=== PATIENT | male | born 1955 | race African-American/Black ===

== ENCOUNTER 2019-11-05 13:30 | Emergency (ER) | payer BC ==
[2019-11-05 14:21] VITALS: BP 130/55
[2019-11-05] MEDS ORDERED: NORMAL SALINE 1000 ML 1,000 ML IV ONE ×2 (14:57→18:15)
--- NOTE | 2019-11-05 14:59 | ER Document Report ---
ED Medical Screen (RME) - General Chief Complaint: Urinary Problem Stated Complaint: BLOOD IN URINE Time Seen by Provider: 11/05/19 14:47 Notes: Patient is a 64-year-old male presents emergency department with a chief complaint of blood in urine. Patient reports he was seen at [facility] for a follow-up appointment today and was sent here for possible urinary tract obstruction. Patient reports he is able to urinate and empty his bladder but does urinate very frequently. Patient reports he has continued to have small blood clots in his urine. Patient reports he was placed on antibiotic about 1 week ago in which she did complete. Patient denies fever. Patient reports chills and feeling cold. Patient reports a decreased appetite and decreased liquid intake. Patient reports he has a bad taste in his mouth every time he at tempts to eat which makes him not want to. Patient reports weakness. TRAVEL OUTSIDE OF THE [place] IN LAST 30 DAYS: No - Related Data Allergies/Adverse Reactions: No Known Allergies Allergy (Verified 11/05/19 14:47) Past Medical History - Social History Chew tobacco use (# tins/day): No Frequency of alcohol use: None Drug Abuse: None Physical Exam - Vital signs Vitals: Pulse Resp BP Pulse Ox 54 L 16 130/55 H 100 11/05/19 14:20 11/05/19 14:20 11/05/19 14:20 11/05/19 14:20 Course - Re-evaluation Re-evalutation: 11/05/19 14:58 Patient's not febrile, tachycardic or hypotensive. Will initiate blood work, IV fluids to start as well as a urinalysis. Will perform bladder scanner to see if patient is retaining urine. I have greeted and performed a rapid initial assessment of this patient. A comprehensive ED assessment and evaluation of the patient, analysis of test results and completion of the medical decision making process will be conducted by additional ED providers. - Vital Signs Vital signs: Temp Pulse Resp BP Pulse Ox 54 L 16 130/55 H 100 11/05/19 14:20 11/05/19 14:20 11/05/19 14:20 11/05/19 14:20
[2019-11-05 16:38] LABS: ABSOLUTE MONOCYTES (AUTO) 1.1 10^3/uL (0.1-1.4); MONOCYTES % (AUTO) 6.2 % (3-13); TOTAL CELLS COUNTED % (AUTO) 100 %
[2019-11-05 16:48] LABS: ABSOLUTE NEUT (AUTO) 14.4 10^3/uL (1.7-8.2); BASOPHILS % (AUTO) 0.2 % (0-2); EOSINOPHILS % (AUTO) 0.3 % (0-6); HEMATOCRIT 29.9 % (37.9-51.0); HEMOGLOBIN 10.1 g/dL (13.5-17.0); LYMPHOCYTES % (AUTO) 11.3 % (13-45); MEAN CORPUSCULAR HEMOGLOBIN 28.7 pg (27.0-33.4); MEAN CORPUSCULAR HGB CONC 33.6 g/dL (32.0-36.0); MEAN CORPUSCULAR VOLUME 85 fl (80-97); PLATELET COUNT 790 10^3/uL (150-450); RED BLOOD COUNT 3.51 10^6/uL (4.35-5.55); WHITE BLOOD COUNT 17.6 10^3/uL (4.0-10.5)
[2019-11-05 16:57] LABS: APPEARANCE,URINE CLOUDY; BILIRUBIN,URINE NEGATIVE (NEGATIVE); COLOR,URINE AMBER; GLUCOSE, URINE NEGATIVE (NEGATIVE); KETONES,URINE NEGATIVE (NEGATIVE); LEUKOCYTE ESTERASE,URINE MODERATE (NEGATIVE); NITRITE,URINE NEGATIVE (NEGATIVE); PROTEIN,URINE 100 mg/dL (NEGATIVE); URINE SPECIFIC GRAVITY 1.017; UROBILINOGEN,URINE NEGATIVE mg/dL (<2.0)
[2019-11-05 16:58] LABS: ALBUMIN 4.3 g/dL (3.5-5.0); ALKALINE PHOSPHATASE 109 U/L (38-126); ASPARTATE AMINO TRANSFERASE 20 U/L (17-59); BILIRUBIN,DIRECT 0.2 mg/dL (0.0-0.4); BILIRUBIN,TOTAL 0.4 mg/dL (0.2-1.3); CALCIUM 9.9 mg/dL (8.4-10.2); GLUCOSE 102 mg/dL (75-110); TOTAL PROTEIN 8.1 g/dL (6.3-8.2)
[2019-11-05 17:03] LABS: CARBON DIOXIDE 14 mmol/L (22-30); CHLORIDE 95 mmol/L (98-107)
[2019-11-05 17:11] LABS: BLOOD UREA NITROGEN 201 mg/dL (7-20)
[2019-11-05 17:18] LABS: ANION GAP 23 (5-19); POTASSIUM 7.5 mmol/L (3.6-5.0)
[2019-11-05] MEDS ORDERED: SODIUM POLYSTYRENE SULFONATE 15 GM/60 ML PO ONE (17:27)
[2019-11-05] MEDS ORDERED: SODIUM BICARBONATE 8.4% INJ 50 MEQ/50 ML DISP.SYRIN IV ONE (17:27)
[2019-11-05] MEDS ORDERED: CALCIUM GLUCONATE 1000 MG/10 ML INJ IV ONE (17:27)
[2019-11-05] MEDS ORDERED: INSULIN REG, HUMAN 100 UNIT/ML 3 ML VIAL (PYX) IV ONE (17:27)
[2019-11-05] MEDS ORDERED: DEXTROSE 50%-WATER 25 GM/50 ML DISP.SYRIN IV ONE (17:27)
[2019-11-05] MEDS ORDERED: ALBUTEROL SULFATE 0.083% NEB 2.5 MG/3 ML AMPUL NEB ONE (17:27)
[2019-11-05] MEDS ORDERED: CEFTRIAXONE 1 GM/D5W RTU 1 GM/50 ML RTUPB IV ONE (18:16)
--- NOTE | 2019-11-05 18:32 | ER Document Report ---
ED General - General Chief Complaint: Urinary Problem Stated Complaint: BLOOD IN URINE Time Seen by Provider: 11/05/19 14:47 Primary Care Provider: ANTONIO CHOUDHARY PA [Primary Care Provider] - Follow up as needed Mode of Arrival: Ambulatory Information source: Patient TRAVEL OUTSIDE OF THE [place] IN LAST 30 DAYS: No - HPI Onset: Other - over the last week or more Onset/Duration: Gradual Quality of pain: No pain Severity: Moderate Pain Level: Denies Associated symptoms: Body/muscle aches, Chills, Weakness, Other - decreased Urine Output Exacerbated by: Denies Relieved by: Denies Similar symptoms previously: Yes - 4 years ago patient had renal failure and a kidney stone Recently seen / treated by doctor: Yes - patient seen at urgent care last week and diagnosed with UTI - given Cipro Notes: 64 year old male with a history of a prior Staghorn Calculi with renal failure 4 years ago here for decreased urination, blood in his urine, and generalized weakness. The patient went to urgent care last week and was diagnosed with a UTI. The patient was treated with Ciprofloxain and Prednisone (patient can not tell me why he was prescribed this) and he has been taking these since Sunday. The patient feels like he is getting weaker and weaker and he has the chills now. Of note, the patient was seen 4 years ago for similar symptoms and he was found to be in renal failure and to have a staghorn calculi (he was transferred to [facility] for nephrology services). - Related Data Allergies/Adverse Reactions: No Known Allergies Allergy (Verified 11/05/19 14:47) Past Medical History - General Information source: Patient - Social History Smoking Status: Current Every Day Smoker Chew tobacco use (# tins/day): No Frequency of alcohol use: None Drug Abuse: None Family History: Reviewed & Not Pertinent Patient has suicidal ideation: No Patient has homicidal ideation: No - Past Medical History Cardiac Medical History: Reports: None Pulmonary Medical History: Reports: None EENT Medical History: Reports: None Neurological Medical History: Reports: None Endocrine Medical History: Reports: None Renal/ Medical History: Reports: Other - Prior right sided staghorn calculi Malignancy Medical History: Reports None GI Medical History: Reports: None Musculoskeletal Medical History: Reports None Skin Medical History: Reports None Psychiatric Medical History: Reports: None Review of Systems - Review of Systems Constitutional: Chills, Weakness EENT: No symptoms reported Cardiovascular: No symptoms reported Respiratory: No symptoms reported Gastrointestinal: No symptoms reported Genitourinary: Flank pain - bilateral, Hematuria Male Genitourinary: No symptoms reported Musculoskeletal: No symptoms reported Skin: No symptoms reported Hematologic/Lymphatic: No symptoms reported Neurological/Psychological: No symptoms reported -: Yes All other systems reviewed and negative Physical Exam - Vital signs Vitals: Pulse Resp BP Pulse Ox 54 L 16 130/55 H 100 11/05/19 14:20 11/05/19 14:20 11/05/19 14:20 11/05/19 14:20 - Notes Notes: GENERAL: Wrapped in blankets, mild shiver noted. Well-nourished, mild acute d istress. HEAD: Atraumatic, normocephalic. EYES: Pupils equal round and reactive to light, extraocular movements intact, sclera anicteric, conjunctiva are normal. ENT: Nares patent, oropharynx clear without exudates. Moist mucous membranes. NECK: Normal range of motion, supple without lymphadenopathy or JVD. LUNGS: Breath sounds clear to auscultation bilaterally and equal. No wheezes rales or rhonchi. HEART: Regular rate and rhythm without murmurs, rubs or gallops. ABDOMEN: Mild abdominal distension. Soft, nontender, normoactive bowel sounds. No guarding, no rebound. No masses appreciated. EXTREMITIES: Normal range of motion, no pitting or edema. No clubbing or cyanosis. NEUROLOGICAL: Cranial nerves II through XII grossly intact. Normal speech, normal gait. PSYCH: Normal mood, normal affect. SKIN: Warm, Dry, normal turgor, no rashes or lesions noted. Course - Re-evaluation Re-evalutation: 11/05/19 19:18 I arrived for my shift at 6pm. This patient had been MSEed before I saw the patient and labs had returned showing significant kidney failure, hyperkalemia, and a continued UTI. Patient already had hyperkalemia treatments ordered by the screening provider but none had been given before I came on shift. Patient immediately treated with Calcium Gluconate, Insulin, Dextrose, Sodium Bicarbonate, IV Fluids, and Rocephin. 11/05/19 20:20 The patient had 600cc of urine in the bladder which is concerning for an ob structive Uropathy. I instructed the nursing staff to place a 3 way Wade and irrigate until his urine is clear. After speaking with the Hospitalist and Cable Operator here at [place], since there are no dialysis beds available and since the patient may need a Urological intervention, I was instructed to transfer the patient. Since the patient was seen at [place] 4 years ago for the same issue I consulted their Hospitalist who admitted the patient. - Vital Signs Vital signs: Temp Pulse Resp BP Pulse Ox 54 L 16 130/55 H 100 11/05/19 14:20 11/05/19 14:20 11/05/19 14:20 11/05/19 14:20 - Laboratory Result Diagrams: 11/05/19 16:10 11/05/19 16:10 Laboratory results interpreted by me: 11/05/19 11/05/19 11/05/19 15:50 16:10 16:10 WBC 17.6 H RBC 3.51 L Hgb 10.1 L Hct 29.9 L RDW 16.0 H Plt Count 790 H Lymph % (Auto) 11.3 L Absolute Neuts (auto) 14.4 H Seg Neutrophils % 82.0 H Sodium 131.5 L Potassium 7.5 H* Chloride 95 L Carbon Dioxide 14 L Anion Gap 23 H BUN 201 H Creatinine 11.48 H Est GFR ( Amer) 5 L Est GFR (MDRD) Non-Af 5 L POC Glucose Urine Protein 100 H Urine Blood LARGE H Ur Leukocyte Esterase MODERATE H 11/05/19 19:12 WBC RBC Hgb Hct RDW Plt Count Lymph % (Auto) Absolute Neuts (auto) Seg Neutrophils % Sodium Potassium Chloride Carbon Dioxide Anion Gap BUN Creatinine Est GFR ( Amer) Est GFR (MDRD) Non-Af POC Glucose 113 H Urine Protein Urine Blood Ur Leukocyte Esterase - Diagnostic Test Radiology reviewed: Image reviewed, Reports reviewed - EKG Interpretation by Me EKG shows normal: Sinus rhythm, Intervals, ST-T Waves [place]/QRS: Left axis deviation, RBBB, LAHB/LAFB Critical Care Note - Critical Care Note Total time excluding time spent on procedures (mins): 41 Discharge - Discharge Clinical Impression: Urinary obstruction, Hyperkalemia UTI (urinary tract infection) Qualifiers: Urinary tract infection type: site unspecified Hematuria presence: with hematuria Qualified Code(s): N39.0 - Urinary tract infection, site not specified Acute kidney failure Qualifiers: Acute renal failure type: unspecified Qualified Code(s): N17.9 - Acute kidney failure, unspecified Condition: Stable Disposition: [facility] Admitting Provider: Dr. Lopez Referrals: ANTONIO CHOUDHARY PA [Primary Care Provider] - Follow up as needed
--- NOTE | 2019-11-05 20:16 | EKG REPORT ---
SEVERITY:- ABNORMAL ECG - SINUS TACHYCARDIA WITH PACS [id number] RBBB AND LAFB : Confirmed by: David Mckinnon MD 05-Nov-2019 20:14:44
--- NOTE | 2019-11-05 20:27 | RADIOLOGY REPORT (SQ) ---
EXAM DESCRIPTION: US RETROPERITONEUM LIMITED COMPLETED DATE/TME: 11/05/2019 18:28 CLINICAL HISTORY: 64 years, Male, eval for cause renal failure. hx staghorn calculi COMPARISON: Prior CT from 01/11/2016 TECHNIQUE: Axial 2-D grayscale images of the retroperitoneum were acquired. Doppler was utilized. LIMITATIONS: None. FINDINGS: Right kidney measures 9.4 x 6.1 x 5.2 cm in size. It is diffusely echogenic. In addition, there is severe hydronephrosis. A large echogenic calculus is noted about the mid to lower pole measuring 1.7 x 1.0 x 1.7 cm in size. Left kidney measures 11.2 x 5.5 x 5.6 cm in size. It is diffusely echogenic. In addition, there is moderate to severe hydronephrosis. No obvious foci of echogenicity are identified within the left renal collecting system. The urinary bladder is distended, measuring 617 mL in volume. Neither ureteral jet was visualized. In addition, there is an echogenic material layering dependently within the bladder lumen/adjacent to the bladder wall which is indeterminate on this examination. IMPRESSION: Bilateral hydronephrosis, severe on the right and moderate to severe on the left. Superimposed right nephrolithiasis. Echogenic kidneys, suggestive of medical renal disease. Echogenic material within the urinary bladder, indeterminate on this examination. While this could indicate debris, correlation with direct visualization is suggested if not already recently performed to exclude underlying malignancy given its close proximity to the bladder wall. copyright 2010 [employer]- All Rights Reserved
[2019-11-05] MEDS ORDERED: LIDOCAINE 2% URO-JET 5 ML KIT MM ONE (20:34)
== END 2019-11-05 21:45 | disposition short-term general hospital (02) ==
LOC: ER 13:30
DX: N39.0 Urinary tract infection, site not specified (principal); E87.5 Hyperkalemia; N13.9 Obstructive and reflux uropathy, unspecified; N17.9 Acute kidney failure, unspecified; R31.9 Hematuria, unspecified; M79.10 Myalgia, unspecified site; R53.1 Weakness
CPT/HCPCS: 93005; 36415; 87040; 87086; 82962; 83605; 85025; 80053; 81001; 76775; 93010; J0610; J3490 ×3; J1815; J7030; J0696

== ENCOUNTER 2020-04-26 19:01 | Inpatient (IN) | payer BC ==
[2020-04-26] MEDS ORDERED: NORMAL SALINE IV PRN (19:25)
[2020-04-26] MEDS ORDERED: PIPERACILLIN/TAZOBACTAM 3.375 GM VIAL IV ONE (19:25)
--- NOTE | 2020-04-26 19:32 | ER Document Report ---
ED General - General Chief Complaint: Other Stated Complaint: POSSIBLE SEPSIS Time Seen by Provider: 04/26/20 19:15 Mode of Arrival: Medic Information source: Patient, Emergency Med Personnel Notes: 64-year-old man brought to the emergency department by EMS apparently called to the home for sick call. Patient found in the bed and very weak. He was able to stand, does not give much of a history. Apparently has a history of bladder cancer and has had poor intake over the past 3 to 4 days. Family notes that he has not gotten out of bed today. And transport patient was noted to have blood pressure in the low 100s, temperature of 96, elevated lactate level. Patient states that he was diagnosed with likely bladder cancer, was scheduled for biopsy today, however it was canceled. States that he was also supposed to be taking antibiotics, however, never received the prescription. He has had very poor intake, states that he has not eaten or drank fluids today. Unable to recall the last time that he is eaten. TRAVEL OUTSIDE OF THE [place] IN LAST 30 DAYS: No - Related Data Allergies/Adverse Reactions: No Known Allergies Allergy (Verified 11/05/19 14:47) Past Medical History - Social History Smoking Status: Unknown if Ever Smoked Family History: Reviewed & Not Pertinent Renal/ Medical History: Reports: Hx Kidney Stones Review of Systems - Review of Systems Notes: Constitutional: + Generalized weakness HENT: Negative for sore throat. Eyes: Negative for visual changes. Cardiovascular: Negative for chest pain. Respiratory: Negative for shortness of breath. Gastrointestinal: Negative for abdominal pain, vomiting or diarrhea. Genitourinary: + Urinary fullness. Musculoskeletal: Negative for back pain. Skin: Negative for rash. Neurological: Negative for headaches, weakness or numbness. 10 point ROS negative except as marked above and in HPI. Physical Exam - Vital signs Vitals: Pulse Ox 100 04/26/20 19:03 - Notes Notes: PHYSICAL EXAMINATION: Physical Exam: General: Chronically ill-appearing 64-year-old man in no acute distress HEENT: NC/AT, eyes are sunken, pupils equal round and reactive to light, MM moist,nares clear, oropharynx clear, airway patent Neck: supple, no adenopathy, no masses. Good range of motion Lungs: clear, no wheezing, no rales no rhonchi CVS: Regular rate and rhythm no murmur gallop or rub Abdomen: Soft, active, nontender, no masses, no hepatosplenomegaly : Blood-tinged drainage from the penis. Ext: No edema, clubbing or cyanosis. Neuro: Alert and responsive, moving all 4 extremities on command, cranial nerves intact, no focal findings Skin: + Skin tenting, + poor capillary refill Course - Re-evaluation Re-evalutation: 04/26/20 23:52 64-year-old man who presents to the emergency department with poor intake generalized weakness and feeling poorly. Evaluation reveals anemia with a hemoglobin of 4, potassium of 8.2 with acute on chronic renal failure. Patient was also noted to have a WBC count of 75,000. Patient is hypothermic with a rectal temp of 92, sepsis protocol is begun. He was given 30 mL/kg IV fluids, Zosyn 3.375 g IV. Lactic acid was 6.5. Patient is given hyperkalemia treatment D50 1 amp, regular insulin 8 units, sodium bicarb 1 amp, calcium chloride 2000 mg. The ornament maker hand Dr. Oconnell was contacted, she states that the patient will need dialysis, however there is no dialysis at night and our treatment she agreed to manage the hyperkalemia medically. Review of his labs reveals that patient has had elevated potassiums BUN and creatinine with renal failure 04/26/20 23:59 - Vital Signs Vital signs: Temp Pulse Resp BP Pulse Ox 97.4 F 70 27 H 105/64 87 L 04/27/20 01:17 04/27/20 01:21 04/27/20 01:21 04/27/20 01:21 04/27/20 01:21 - Laboratory Result Diagrams: 04/26/20 20:03 04/26/20 23:17 Laboratory results interpreted by me: 04/26/20 04/26/20 04/26/20 19:20 20:03 20:03 WBC RBC Hgb Hct MCH MCHC RDW Plt Count Seg Neuts % (Manual) Lymphocytes % (Manual) Monocytes % (Manual) Abs Neuts (Manual) Abs Monocytes (Manual) PT 16.8 H VBG pH 7.11 L* VBG pCO2 20.4 L VBG HCO3 6.4 L Sodium Potassium Carbon Dioxide BUN Creatinine Est GFR ( Amer) Est GFR (MDRD) Non-Af Glucose POC Glucose Lactic Acid 6.3 H Crossmatch 04/26/20 04/26/20 04/26/20 20:03 20:03 20:03 WBC 75.6 H* RBC 1.60 L Hgb 4.0 L* Hct 13.2 L* MCH 24.9 L MCHC 30.2 L RDW 18.4 H Plt Count 649 H Seg Neuts % (Manual) 95 H Lymphocytes % (Manual) 3 L Monocytes % (Manual) 2 L Abs Neuts (Manual) 71.8 H Abs Monocytes (Manual) 1.5 H PT VBG pH VBG pCO2 VBG HCO3 Sodium 134.6 L Potassium 8.2 H* Carbon Dioxide < 5 L* BUN 164 H Creatinine 20.02 H Est GFR ( Amer) 3 L Est GFR (MDRD) Non-Af 2 L Glucose 157 H POC Glucose Lactic Acid Crossmatch See Detail 04/26/20 04/26/20 04/26/20 21:06 23:17 23:17 WBC RBC Hgb Hct MCH MCHC RDW Plt Count Seg Neuts % (Manual) Lymphocytes % (Manual) Monocytes % (Manual) Abs Neuts (Manual) Abs Monocytes (Manual) PT VBG pH VBG pCO2 VBG HCO3 Sodium 134.0 L Potassium 6.9 H* D Carbon Dioxide 9 L* BUN 145 H Creatinine 18.20 H Est GFR ( Amer) 3 L Est GFR (MDRD) Non-Af 3 L Glucose 143 H POC Glucose 154 H Lactic Acid 3.7 H Crossmatch - Diagnostic Test Radiology reviewed: Image reviewed, Reports reviewed Radiology results interpreted by ny: 04/27/20 00:45 Chest x-ray 1 view: No acute cardiopulmonary findings. - EKG Interpretation by Ia EKG shows normal: Sinus rhythm, [place] - Normal, Intervals - First-degree AV block, QRS Complexes - Widened QRS, 172 ms, ST-T Waves [place]/QRS: RBBB, LPHB/LPFB - Left posterior fascicular block, no acute ST-T wave abnormalities seen., No ischemic findings. Critical Care Note - Critical Care Note Total time excluding time spent on procedures (mins): 120 - Critical care time spent obtaining history from patient or surrogate, discussions with consultants, development of treatment plan with patient or surrogate, evaluation of patient's response to treatment, examination of patient, ordering and performing treatments and interventions, ordering and review of laboratory studies, re- evaluation of patient's condition, ordering and review of radiographic studies and review of old charts Discharge - Discharge Clinical Impression: Hyperkalemia, Leukemoid reaction Hypothermia Qualifiers: Encounter type: initial encounter Qualified Code(s): T68.XXXA - Hypothermia, initial encounter Acute on chronic renal failure Qualifiers: Acute renal failure type: unspecified Chronic kidney disease stage: stage 5, not on chronic dialysis Qualified Code(s): N17.9 - Acute kidney failure, unspecified Hematuria Qualifiers: Hematuria type: gross Qualified Code(s): R31.0 - Gross hematuria Anemia Qualifiers: Anemia type: due to chronic kidney disease Chronic kidney disease stage: stage 5, not on chronic dialysis Qualified Code(s): N18.5 - Chronic kidney disease, stage 5 Condition: Stable Disposition: ADMITTED INPATIENT Admitting Provider: Dante (Hospitalist) Unit Admitted: [facility]
[2020-04-26 19:42] LABS: INTERNATIONAL RATION (INR) 1.35; PROTHROMBIN TIME 16.8 SEC (11.4-15.4)
--- NOTE | 2020-04-26 20:14 | RADIOLOGY REPORT (SQ) ---
XR CHEST 1 VIEW HISTORY: Sepsis. COMPARISON: None. FINDINGS: The heart size is within normal limits. There is no pulmonary vascular congestion. No consolidation, pleural effusion, or pneumothorax is seen. The bony structures are preserved. IMPRESSION: No evidence of acute cardiopulmonary disease.
[2020-04-26 20:25] LABS: VENOUS BLOOD HCO3 6.4 mmol/L (20-32); VENOUS BLOOD PCO2 20.4 mmHg (35-63)
[2020-04-26 20:30] LABS: MEAN CORPUSCULAR HEMOGLOBIN 24.9 pg (27.0-33.4); MEAN CORPUSCULAR HGB CONC 30.2 g/dL (32.0-36.0); MEAN CORPUSCULAR VOLUME 82 fl (80-97); PLATELET COUNT 649 10^3/uL (150-450); RED CELL DISTRIBUTION WIDTH 18.4 % (11.5-14.0)
[2020-04-26 20:38] LABS: ABSOLUTE LYMPHOCYTES# (MANUAL) 2.3 10^3/uL (0.5-4.7); ABSOLUTE MONOCYTES # (MANUAL) 1.5 10^3/uL (0.1-1.4); BASOPHILS % (MANUAL) 0 % (0-2); EOSINOPHILS % (MANUAL) 0 % (0-6); LYMPHOCYTES % (MANUAL) 3 % (13-45); MONOCYTES % (MANUAL) 2 % (3-13); SEGMENTED NEUTROPHILS % (MAN) 95 % (42-78); TOTAL CELLS COUNTED 100
[2020-04-26 20:41] LABS: ANISOCYTOSIS 1+; HYPOCHROMASIA 1+; POLYCHROMASIA SLIGHT; TOXIC GRANULATION 1+
[2020-04-26 20:42] LABS: BURR CELLS 2+; PLATELET COMMENT INCREASED; POIKILOCYTOSIS 1+; SCHISTOCYTES SLIGHT
[2020-04-26 20:48] LABS: WHITE BLOOD COUNT 75.6 10^3/uL (4.0-10.5)
[2020-04-26 20:49] LABS: HEMATOCRIT 13.2 % (37.9-51.0)
[2020-04-26 20:50] LABS: OVALOCYTES SLIGHT
[2020-04-26 20:53] LABS: CREATINE KINASE MB 2.73 ng/mL (<4.55)
[2020-04-26] MEDS ORDERED: NORMAL SALINE 250 ML IV PRN (21:01)
[2020-04-26 21:07] LABS: ALBUMIN 3.7 g/dL (3.5-5.0); ALKALINE PHOSPHATASE 107 U/L (38-126); ASPARTATE AMINO TRANSFERASE 23 U/L (17-59); BILIRUBIN,DIRECT 0.3 mg/dL (0.0-0.4); BILIRUBIN,TOTAL 0.4 mg/dL (0.2-1.3); CALCIUM 9.9 mg/dL (8.4-10.2); CREATINE KINASE 100 U/L (55-170); GLUCOSE 157 mg/dL (75-110); TOTAL PROTEIN 8.2 g/dL (6.3-8.2)
[2020-04-26 21:12] LABS: CHLORIDE 105 mmol/L (98-107)
[2020-04-26] MEDS ORDERED: SODIUM POLYSTYRENE SULFONATE 15 GM/60 ML PO ONE (21:18)
[2020-04-26] MEDS ORDERED: INSULIN REG, HUMAN 100 UNIT/ML 3 ML VIAL (PYX) IV ONE (21:18)
[2020-04-26] MEDS ORDERED: CALCIUM GLUCONATE 1000 MG/10 ML INJ IV ONE (21:18)
[2020-04-26] MEDS ORDERED: DEXTROSE 50%-WATER 25 GM/50 ML DISP.SYRIN IV ONE (21:18)
[2020-04-26] MEDS ORDERED: SODIUM BICARBONATE 8.4% INJ 50 MEQ/50 ML DISP.SYRIN IV ONE ×2 (21:21→23:58)
[2020-04-26] MEDS: NORMAL SALINE 250 ML IV PRN (21:25)
[2020-04-26 21:50] LABS: BLOOD UREA NITROGEN 164 mg/dL (7-20)
[2020-04-26 21:52] LABS: POTASSIUM 8.2 mmol/L (3.6-5.0)
[2020-04-26 21:56] LABS: CARBON DIOXIDE < 5 mmol/L (22-30)
[2020-04-26 21:57] LABS: TROPONIN I 0.065 ng/mL; VENOUS BLOOD PH 7.11 (7.30-7.42)
[2020-04-26] MEDS ORDERED: NORMAL SALINE 1000 ML 1,000 ML IV ONE (23:58)
[2020-04-27 00:25] LABS: ANION GAP 19 (5-19); CALCIUM 8.9 mg/dL (8.4-10.2); CHLORIDE 106 mmol/L (98-107); GLUCOSE 143 mg/dL (75-110)
[2020-04-27 00:27] LABS: BLOOD UREA NITROGEN 145 mg/dL (7-20)
[2020-04-27 00:32] LABS: CARBON DIOXIDE 9 mmol/L (22-30); POTASSIUM 6.9 mmol/L (3.6-5.0)
[2020-04-27] MEDS: NORMAL SALINE 250 ML IV PRN (00:49)
[2020-04-27] MEDS ORDERED: DEXTROSE 50%-WATER 25 GM/50 ML DISP.SYRIN IV PRN ×2 (01:20)
[2020-04-27] MEDS ORDERED: GLUCAGON,HUMAN RECOMB 1 MG INJ IM PRN (01:20)
[2020-04-27] MEDS ORDERED: DEXTROSE 40% GEL 15 GM TUBE PO PRN ×2 (01:20)
[2020-04-27] MEDS ORDERED: ONDANSETRON HCL INJ/PF 4 MG/2 ML SDV IV PRN (01:20)
--- NOTE | 2020-04-27 01:38 | PDOC H&P ---
History of Present Illness Admission Date/PCP: CASSANDRA SCHREIBER History of Present Illness: FIDENCIO SIMMONS JR is a 64 year old male with prior hx advanced CKD who sees all his doctors in [facility], not on HD, cannot remember last time he made urine, came in to ER b/c weakness and diarrhea that had been progressing over a few days. No cough, fever, SOB, abdominal pain, N/V, dysuria. CXR & UA negative. Had profound leukocytosis. Hgb 4, no reports of bleeding. No home meds. K+ over 8, Cr over 20, HCO3- 8. Social History Smoking Status: Current Every Day Smoker Family History Family History: Reviewed & Not Pertinent Parental Family History Reviewed: Yes Children Family History Reviewed: NA Sibling(s) Family History Reviewed.: Yes Medication/Allergy Home Medications: No Home Medications 11/05/19 Allergies/Adverse Reactions: No Known Allergies Allergy (Verified 11/05/19 14:47) Review of Systems All systems: reviewed and no additional remarkable complaints except as stated - all systems were reviewed and were negative except as noted in the HPI Physical Exam Vital Signs: Temp Pulse Resp BP Pulse Ox 97.4 F 92 14 100/51 L 100 04/27/20 01:17 04/27/20 01:10 04/27/20 01:10 04/27/20 01:04 04/27/20 01:10 Intake & Output 04/25/20 04/26/20 04/27/20 06:59 06:59 06:59 Intake Total 2407 Balance 2407 Weight 63.503 kg General appearance: PRESENT: no acute distress, cooperative, disheveled, thin Head exam: PRESENT: atraumatic, normocephalic Eye exam: PRESENT: EOMI, PERRLA. ABSENT: conjunctival injection, nystagmus, scleral icterus Ear exam: PRESENT: normal external ear exam Mouth exam: PRESENT: dry mucosa, neck supple Teeth exam: PRESENT: poor dentation Throat exam: ABSENT: post pharyngeal erythema Neck exam: PRESENT: full ROM. ABSENT: carotid bruit, JVD, lymphadenopathy, meningismus, tenderness, thyromegaly Respiratory exam: PRESENT: clear to auscultation donald, symmetrical, unlabored. ABSENT: accessory muscle use, chest wall tenderness, crackles, prolonged expiratory phas, rhonchi, tachypnea, wheezes Cardiovascular exam: PRESENT: RRR, +S1, +S2 Pulses: PRESENT: normal carotid pulses Vascular exam: PRESENT: normal capillary refill GI/Abdominal exam: PRESENT: normal bowel sounds, soft. ABSENT: distended, guarding, rebound, tenderness Extremities exam: ABSENT: clubbing, pedal edema Musculoskeletal exam: PRESENT: normal inspection. ABSENT: deformity Neurological exam: PRESENT: alert, oriented to person, oriented to place, oriented to situation, CN II-XII grossly intact. ABSENT: motor sensory deficit Psychiatric exam: PRESENT: appropriate affect, normal mood Skin exam: PRESENT: dry, warm Results Laboratory Results: 04/26/20 20:03 04/26/20 23:17 04/26/20 04/26/20 04/26/20 19:20 19:20 20:03 WBC Cancelled RBC Cancelled Hgb Cancelled Hct Cancelled MCV Cancelled MCH Cancelled MCHC Cancelled RDW Cancelled Plt Count Cancelled Seg Neutrophils % Cancelled VBG pH 7.11 L* VBG pCO2 20.4 L VBG HCO3 6.4 L VBG Base Excess -21.0 Sodium Cancelled Potassium Cancelled Chloride Cancelled Carbon Dioxide Cancelled Anion Gap Cancelled BUN Cancelled Creatinine Cancelled Est GFR ( Amer) Cancelled Est GFR (Non-Af Amer) Cancelled Glucose Cancelled Lactic Acid Calcium Cancelled Total Bilirubin Cancelled AST Cancelled Alkaline Phosphatase Cancelled Total Protein Cancelled Albumin Cancelled Blood Type Antibody Screen 04/26/20 04/26/20 04/26/20 20:03 20:03 20:03 WBC 75.6 H* RBC 1.60 L Hgb 4.0 L* Hct 13.2 L* MCV 82 MCH 24.9 L MCHC 30.2 L RDW 18.4 H Plt Count 649 H Seg Neutrophils % Not Reportable VBG pH VBG pCO2 VBG HCO3 VBG Base Excess Sodium 134.6 L Potassium 8.2 H* Chloride 105 Carbon Dioxide < 5 L* Anion Gap Not Reportable BUN 164 H Creatinine 20.02 H Est GFR ( Amer) 3 L Est GFR (Non-Af Amer) Glucose 157 H Lactic Acid 6.3 H Calcium 9.9 Total Bilirubin 0.4 AST 23 Alkaline Phosphatase 107 Total Protein 8.2 Albumin 3.7 Blood Type Antibody Screen 04/26/20 04/26/20 04/26/20 20:03 23:17 23:17 WBC RBC Hgb Hct MCV MCH MCHC RDW Plt Count Seg Neutrophils % VBG pH VBG pCO2 VBG HCO3 VBG Base Excess Sodium 134.0 L Potassium 6.9 H* D Chloride 106 Carbon Dioxide 9 L* Anion Gap 19 BUN 145 H Creatinine 18.20 H Est GFR ( Amer) 3 L Est GFR (Non-Af Amer) Glucose 143 H Lactic Acid 3.7 H Calcium 8.9 Total Bilirubin AST Alkaline Phosphatase Total Protein Albumin Blood Type O POSITIVE Antibody Screen NEGATIVE 04/26/20 04/26/20 04/26/20 19:20 19:20 20:03 Creatine Kinase Cancelled 100 CK-MB (CK-2) Cancelled Troponin I Cancelled 04/26/20 20:03 Creatine Kinase CK-MB (CK-2) 2.73 Troponin I 0.065 Impressions: Chest X-Ray 04/26/20 19:03 IMPRESSION: No evidence of acute cardiopulmonary disease. Assessment and Plan - Diagnosis (1) Acute on chronic renal failure Qualifiers: Acute renal failure type: unspecified Chronic kidney disease stage: stage 5, not on chronic dialysis Qualified Code(s): N17.9 - Acute kidney failure, unspecified; N18.5 - Chronic kidney disease, stage 5 Is this a current diagnosis for this admission?: Yes Plan: IVF, electrolyte management, nephro consult. Bicarb low so I have him on D5W with 3 amps of bicarb for now. pH 7.11. (2) Anemia Qualifiers: Anemia type: due to chronic kidney disease Chronic kidney disease stage: stage 5, not on chronic dialysis Qualified Code(s): N18.5 - Chronic kidney disease, stage 5; D63.1 - Anemia in chronic kidney disease Is this a current diagnosis for this admission?: Yes Plan: All of his issues now can be tied to his renal failure. PRBC with repeat CBC. No evidence of bleeding. (3) Hyperkalemia Is this a current diagnosis for this admission?: Yes Plan: IVF, will likely give patiromer, repeat BMP (4) Hypothermia Qualifiers: Encounter type: initial encounter Qualified Code(s): T68.XXXA - H ypothermia, initial encounter Is this a current diagnosis for this admission?: Yes Plan: now resolved, no evidence of infection (5) Leukemoid reaction Is this a current diagnosis for this admission?: Yes Plan: likely reactive, no evidence of infection (6) Metabolic acidosis Is this a current diagnosis for this admission?: Yes Plan: as previously noted - Time Time Spent with patient: 35 or more minutes Anticipated Discharge Disposition: TBD Anticipated Discharge Timeframe: TBD - Inpatient Certification Based on my medical assessment, after consideration of the patient's comorbidities, presenting symptoms, or acuity I expect that the services needed warrant INPATIENT care.: Yes I certify that my determination is in accordance with my understanding of [facility]'s requirements for reasonable and necessary INPATIENT services [42 CFR 412.3e].: Yes Medical Necessity: Significant Comorbidiites Make Outpatient Treatment Too Risky, Need Close Monitoring Due to Risk of Patient Decompensation, Need For IV Fluids, Need For Continuous Telemetry Monitoring, Risk of Complication if Not Cared For in Hospital
[2020-04-27] MEDS ORDERED: PATIROMER 8.4 GM SUSP PACKET PO ONE (02:30)
[2020-04-27] MEDS ORDERED: SODIUM BICARBONATE 8.4% INJ 50 MEQ/50 ML DISP.SYRIN ONE ×2 (03:35→03:39)
[2020-04-27] MEDS ORDERED: PATIROMER 8.4 GM SUSP PACKET ONE (03:35)
[2020-04-27] MEDS: DEXTROSE 5%-WATER 1000 ML 1,000 ML with SODIUM BICARBONATE 150 MEQ IV PRN ×6 (04:45→23:17)
[2020-04-27] MEDS: HEPARIN SOD (PORCINE) 5,000 UNIT/ML 1 ML VIAL SUBCUT SCH ×3 (05:34→21:25)
[2020-04-27 06:46] LABS: HEMATOCRIT 19.9 % (37.9-51.0); MEAN CORPUSCULAR HEMOGLOBIN 28.3 pg (27.0-33.4); MEAN CORPUSCULAR HGB CONC 33.3 g/dL (32.0-36.0); MEAN CORPUSCULAR VOLUME 85 fl (80-97); PLATELET COUNT 450 10^3/uL (150-450); RED BLOOD COUNT 2.34 10^6/uL (4.35-5.55); RED CELL DISTRIBUTION WIDTH 16.5 % (11.5-14.0)
[2020-04-27 07:01] LABS: ANION GAP 16 (5-19); CARBON DIOXIDE 13 mmol/L (22-30); CHLORIDE 109 mmol/L (98-107); GLUCOSE 109 mg/dL (75-110); PHOSPHORUS 11.1 mg/dL (2.5-4.5)
[2020-04-27 07:14] LABS: BLOOD UREA NITROGEN 140 mg/dL (7-20)
[2020-04-27 07:22] LABS: POTASSIUM 5.8 mmol/L (3.6-5.0)
[2020-04-27 07:28] LABS: ARTERIAL BLOOD BASE EXCESS -10.7 mmol/L; ARTERIAL BLOOD H2CO3 0.72 mmol/L (1.05-1.35); ARTERIAL BLOOD HCO3 13.6 mmol/L (20-24); ARTERIAL BLOOD O2 SATURATION 98.6 % (94-98); ARTERIAL BLOOD PCO2 23.9 mmHg (35-45); ARTERIAL BLOOD PH 7.37 (7.35-7.45); ARTERIAL BLOOD PO2 129.7 mmHg (80-100); ARTERIAL BLOOD TOTAL CO2 14.3 mmol/L (23-27)
[2020-04-27 07:31] LABS: HEMOGLOBIN 6.6 g/dL (13.5-17.0)
[2020-04-27 07:33] LABS: WHITE BLOOD COUNT 63.2 10^3/uL (4.0-10.5)
[2020-04-27 07:36] LABS: ARTERIAL BLOOD FIO2 ROOM AIR
[2020-04-27] MEDS: INSULIN LISPRO 100 UNIT/ML 3 ML VIAL SUBCUT SCH ×4 (09:21→21:25)
--- NOTE | 2020-04-27 09:34 | EKG REPORT ---
SEVERITY:- ABNORMAL ECG - SINUS ARRHYTHMIA, RATE 64-94 IVCD, CONSIDER ATYPICAL RBBB LAFB : Confirmed by: David Mckinnon MD 27-Apr-2020 09:34:16
--- NOTE | 2020-04-27 09:36 | EKG REPORT ---
SEVERITY:- DEFECTIVE ECG - NSR 92. RIGHT BUNDLE BRANCH BLOCK LAFB : Confirmed by: David Mckinnon MD 27-Apr-2020 09:35:38
[2020-04-27] MEDS ORDERED: TUBERCULIN,PURIF.PROT.DERIV. 5 TU/0.1 ML TEST 1 ML VIAL ID ONE ×2 (09:55→12:00)
[2020-04-27] MEDS ORDERED: HEPARIN SOD (PORCINE) 1,000 UNIT/ML 10 ML VIAL IV PRN (09:55)
[2020-04-27 10:19] LABS: ANION GAP 17 (5-19); CALCIUM 8.4 mg/dL (8.4-10.2); CARBON DIOXIDE 14 mmol/L (22-30); CHLORIDE 105 mmol/L (98-107); GLUCOSE 138 mg/dL (75-110); POTASSIUM 5.2 mmol/L (3.6-5.0)
[2020-04-27 10:31] LABS: BLOOD UREA NITROGEN 140 mg/dL (7-20)
--- NOTE | 2020-04-27 11:47 | Operative Report ---
Nonrecallable Operative Report DATE OF SURGERY: 04/27/20 PREOPERATIVE DIAGNOSIS: Acute and chronic renal failure POSTOPERATIVE DIAGNOSIS: Acute and chronic renal failure OPERATION: Trial assist catheter placement right internal jugular vein SURGEON: JAUN LOPEZ ANESTHESIA: Local TISSUE REMOVED OR ALTERED: None COMPLICATIONS: None ESTIMATED BLOOD LOSS: 5 cc INTRAOPERATIVE FINDINGS: See note PROCEDURE: Procedure was accomplished in the patient's hospital bed in the intensive care unit. The patient was placed in the Trendelenburg position. After appropriate timeout site verification the procedure commenced. The right neck was prepped and draped in usual sterile fashion. Using 1% lidocaine plain the right internal jugular vein was accessed and anesthetized over the vein. Then using a 16-gauge needle the right vein was again accessed and a wire was placed into the superior vena cava. The serial dilators were then used over the wire after a small skin braulio was made at the wire entrance in the right neck. Dilators were removed and then the trial assist catheter was placed over the wire into the superior vena cava. It was fixed to the neck with 2 stitches of 3-0 nylon suture. Sterile dressing was applied. A chest x-ray confirmed good placement. Patient tolerated the procedure well without complications.
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
--- NOTE | 2020-04-27 12:19 | RADIOLOGY REPORT (SQ) ---
EXAM DESCRIPTION: CHEST SINGLE VIEW IMAGES COMPLETED DATE/TIME: 04/27/2020 11:00 am REASON FOR STUDY: s/p dialysis catheter placed RIJ COMPARISON: Chest radiograph, 04/26/2020 EXAM PARAMETERS: NUMBER OF VIEWS: One view. TECHNIQUE: Single frontal radiographic view of the chest acquired. RADIATION DOSE: NA LIMITATIONS: None. FINDINGS: LUNGS AND PLEURA: Lungs are hyperinflated. No focal consolidation or pleural effusion. N o pneumothorax. There is a skin fold along the anterior right chest wall extending over the right lor ng apex. MEDIASTINUM AND HILAR STRUCTURES: No masses. Contour normal. HEART AND VASCULAR STRUCTURES: Heart normal in size. Normal vasculature. BONES: No acute findings. HARDWARE: New right IJ central venous catheter with tip in the right atrium. OTHER: No other significant finding. IMPRESSION: New right IJ central venous catheter with tip in the right atrium. No acute cardiopulmo nary disease. No pneumothorax. TECHNICAL DOCUMENTATION: JOB ID: [id number] 2010 [employer]- All Rights Reserved Reading location - IP/workstation name: [email or web address]
--- NOTE | 2020-04-27 12:49 | RADIOLOGY REPORT (SQ) ---
EXAM DESCRIPTION: U/S RETROPERITON (RENAL/AORTA) IMAGES COMPLETED DATE/TIME: 04/27/2020 12:22 pm REASON FOR STUDY: CHAZ/CKd/Obstructive uropathy COMPARISON: 11/05/2019 TECHNIQUE: Dynamic and static grayscale images acquired of the kidneys and bladder and recorded on P ACS. Additional selected color Doppler and spectral images recorded. LIMITATIONS: None. FINDINGS: RIGHT KIDNEY: Normal size, 11.1 cm. Hydronephrosis. LEFT KIDNEY: Normal size, 13.8 cm. Hydronephrosis. BLADDER: No fluid filled mass is seen in the pelvis. There is what appears to be a solid mass versus complex fluid collection measuring 13.1 x 10.3 x 8.3 cm. OTHER FINDINGS: No other significant finding. IMPRESSION: 1. Bilateral hydronephrosis. 2. In the pelvis there is a large solid mass versus complex fluid collection in the bladder. TECHNICAL DOCUMENTATION: JOB ID: [id number] 2010 [employer]- All Rights Reserved Reading location - IP/workstation name: [email or web address]
[2020-04-27] MEDS: SEVELAMER HCL 800 MG TABLET PO SCH ×2 (12:56→16:05)
[2020-04-27 13:59] LABS: PATH REVIEW PATHOLOGIST REVIEWED
[2020-04-27] MEDS: EPOETIN ALFA-EPBX 30,000 UNIT in SYRINGE, DISPOSABLE, 1 EACH IV PRN (14:11)
[2020-04-27] MEDS ORDERED: OXYCODONE HCL IR 5 MG TABLET PO PRN (15:37)
[2020-04-27] MEDS: PATIROMER 8.4 GM SUSP PACKET PO SCH (16:05)
--- NOTE | 2020-04-27 17:49 | PDOC PROGRESS REPORT ---
Subjective Progress Note for:: 04/27/20 Subjective:: The patient is resting in bed. He just finished dialysis. His not in any significant discomfort. His main concern is the mass in the bladder and knee of the scrotum. Reason For Visit: METABOLIC ACIDOSIS,A ON CKI, HYPERKALEMIA,ANEMIA Physical Exam Vital Signs: Temp Pulse Resp BP Pulse Ox 98.5 F 115 H 13 120/73 100 04/27/20 13:55 04/27/20 15:33 04/27/20 16:48 04/27/20 16:48 04/27/20 16:48 Intake & Output 04/26/20 04/27/20 04/28/20 06:59 06:59 06:59 Intake Total 3857 2350 Output Total 900 Balance 3857 1450 Weight 63.503 kg 61 kg General appearance: PRESENT: no acute distress, cooperative, well-developed Head exam: PRESENT: atraumatic, normocephalic Eye exam: PRESENT: conjunctiva pale, EOMI. ABSENT: scleral icterus Ear exam: PRESENT: normal external ear exam. ABSENT: bleeding, drainage Mouth exam: PRESENT: dry mucosa, tongue midline Respiratory exam: PRESENT: clear to auscultation donald, symmetrical, unlabored. ABSENT: rales, rhonchi, tachypnea, wheezes Cardiovascular exam: PRESENT: RRR, +S1, +S2. ABSENT: bradycardia, diastolic murmur, irregular rhythm, systolic murmur, tachycardia GI/Abdominal exam: PRESENT: diminished bowel sounds, mass - There is a firm mass in the suprapubic area., soft. ABSENT: distended, tenderness Rectal exam: PRESENT: deferred Gentrourinary exam: PRESENT: other - There is a swollen area in the groin near the upper scrotum on the right. ABSENT: indwelling catheter Extremities exam: ABSENT: joint swelling, pedal edema Musculoskeletal exam: PRESENT: ambulatory, normal inspection. ABSENT: deformity, dislocation Neurological exam: PRESENT: alert, awake, oriented to person, oriented to place, oriented to time, oriented to situation, CN II-XII grossly intact. ABSENT: altered, motor sensory deficit Psychiatric exam: PRESENT: flat affect. ABSENT: agitated, anxious Focused psych exam: ABSENT: delusional, paranoid, restlessness Skin exam: PRESENT: dry, pallor, warm. ABSENT: rash Results Laboratory Results: 04/27/20 06:07 04/27/20 09:47 04/26/20 04/26/20 04/26/20 19:20 19:20 20:03 WBC Cancelled RBC Cancelled Hgb Cancelled Hct Cancelled MCV Cancelled MCH Cancelled MCHC Cancelled RDW Cancelled Plt Count Cancelled Seg Neutrophils % Cancelled Carbonic Acid HCO3/H2CO3 Ratio ABG pH ABG pCO2 ABG pO2 ABG HCO3 ABG O2 Saturation ABG Base Excess VBG pH 7.11 L* VBG pCO2 20.4 L VBG HCO3 6.4 L VBG Base Excess -21.0 FiO2 Sodium Cancelled Potassium Cancelled Chloride Cancelled Carbon Dioxide Cancelled Anion Gap Cancelled BUN Cancelled Creatinine Cancelled Est GFR ( Amer) Cancelled Est GFR (Non-Af Amer) Cancelled Glucose Cancelled Lactic Acid Calcium Cancelled Phosphorus Magnesium Total Bilirubin Cancelled AST Cancelled Alkaline Phosphatase Cancelled Total Protein Cancelled Albumin Cancelled Blood Type Antibody Screen 04/26/20 04/26/20 04/26/20 20:03 20:03 20:03 WBC 75.6 H* RBC 1.60 L Hgb 4.0 L* Hct 13.2 L* MCV 82 MCH 24.9 L MCHC 30.2 L RDW 18.4 H Plt Count 649 H Seg Neutrophils % Not Reportable Carbonic Acid HCO3/H2CO3 Ratio ABG pH ABG pCO2 ABG pO2 ABG HCO3 ABG O2 Saturation ABG Base Excess VBG pH VBG pCO2 VBG HCO3 VBG Base Excess FiO2 Sodium 134.6 L Potassium 8.2 H* Chloride 105 Carbon Dioxide < 5 L* Anion Gap Not Reportable BUN 164 H Creatinine 20.02 H Est GFR ( Amer) 3 L Est GFR (Non-Af Amer) Glucose 157 H Lactic Acid 6.3 H Calcium 9.9 Phosphorus Magnesium Total Bilirubin 0.4 AST 23 Alkaline Phosphatase 107 Total Protein 8.2 Albumin 3.7 Blood Type Antibody Screen 04/26/20 04/26/20 04/26/20 20:03 23:17 23:17 WBC RBC Hgb Hct MCV MCH MCHC RDW Plt Count Seg Neutrophils % Carbonic Acid HCO3/H2CO3 Ratio ABG pH ABG pCO2 ABG pO2 ABG HCO3 ABG O2 Saturation ABG Base Excess VBG pH VBG pCO2 VBG HCO3 VBG Base Excess FiO2 Sodium 134.0 L Potassium 6.9 H* D Chloride 106 Carbon Dioxide 9 L* Anion Gap 19 BUN 145 H Creatinine 18.20 H Est GFR ( Amer) 3 L Est GFR (Non-Af Amer) Glucose 143 H Lactic Acid 3.7 H Calcium 8.9 Phosphorus Magnesium Total Bilirubin AST Alkaline Phosphatase Total Protein Albumin Blood Type O POSITIVE Antibody Screen NEGATIVE 04/27/20 04/27/20 04/27/20 02:07 06:07 06:07 WBC 63.2 H* RBC 2.34 L Hgb 6.6 L D Hct 19.9 L MCV 85 MCH 28.3 MCHC 33.3 RDW 16.5 H Plt Count 450 Seg Neutrophils % Carbonic Acid HCO3/H2CO3 Ratio ABG pH ABG pCO2 ABG pO2 ABG HCO3 ABG O2 Saturation ABG Base Excess VBG pH VBG pCO2 VBG HCO3 VBG Base Excess FiO2 Sodium 138.3 Potassium 5.8 H D Chloride 109 H Carbon Dioxide 13 L Anion Gap 16 BUN 140 H Creatinine 17.64 H Est GFR ( Amer) 3 L Est GFR (Non-Af Amer) Glucose 109 Lactic Acid 2.6 H Calcium 9.0 Phosphorus 11.1 H Magnesium 2.8 H Total Bilirubin AST Alkaline Phosphatase Total Protein Albumin Blood Type Antibody Screen 04/27/20 04/27/20 07:10 09:47 WBC RBC Hgb Hct MCV MCH MCHC RDW Plt Count Seg Neutrophils % Carbonic Acid 0.72 L HCO3/H2CO3 Ratio 18:1 ABG pH 7.37 ABG pCO2 23.9 L ABG pO2 129.7 H ABG HCO3 13.6 L ABG O2 Saturation 98.6 H ABG Base Excess -10.7 VBG pH VBG pCO2 VBG HCO3 VBG Base Excess FiO2 ROOM AIR Sodium 135.6 L Potassium 5.2 H Chloride 105 Carbon Dioxide 14 L Anion Gap 17 BUN 140 H Creatinine 17.44 H Est GFR ( Amer) 3 L Est GFR (Non-Af Amer) Glucose 138 H Lactic Acid Calcium 8.4 Phosphorus Magnesium Total Bilirubin AST Alkaline Phosphatase Total Protein Albumin Blood Type Antibody Screen 04/26/20 04/26/20 04/26/20 19:20 19:20 20:03 Creatine Kinase Cancelled 100 CK-MB (CK-2) Cancelled Troponin I Cancelled 04/26/20 20:03 Creatine Kinase CK-MB (CK-2) 2.73 Troponin I 0.065 Impressions: Chest X-Ray 04/27/20 00:00 IMPRESSION: New right IJ central venous catheter with tip in the right atrium. No acute cardiopulmonary disease. No pneumothorax. Renal Ultrasound 04/27/20 00:00 IMPRESSION: 1. Bilateral hydronephrosis. 2. In the pelvis there is a large solid mass versus complex fluid collection in the bladder. Assessment and Plan - Diagnosis (1) Acute on chronic renal failure Qualifiers: Acute renal failure type: unspecified Chronic kidney disease stage: stage 5, not on chronic dialysis Qualified Code(s): N17.9 - Acute kidney failure, unspecified; N18.5 - Chronic kidney disease, stage 5 Is this a current diagnosis for this admission?: Yes Plan: Serum creatinine in 2016 as well as October of this year was over 11. On admission the serum creatinine was 20.02 with a BUN of 164. A dialysis catheter will be placed and the plan is for hemodialysis starting today. Nephrology will be seeing the patient. (2) Anemia, chronic disease Is this a current diagnosis for this admission?: Yes Plan: Based on previous serum creatinines his kidney disease has likely been around since 2015. His hemoglobin was 10.8 at that time. In October of this year his hemoglobin was 10.1. On admission his hemoglobin was 4.0. He will receive 2 units of packed red blood cells today and his hemoglobin will be rechecked several hours after the second unit. (3) Hyperkalemia Is this a current diagnosis for this admission?: Yes Plan: Serum potassium was 8.2 on admission. This is most likely due to to the kidney failure. He was given IV fluids and Patiromer. Serum potassium is down to 5.2. The patient also had dialysis earlier today. We will continue to monitor the serum potassium on a daily basis. (4) Hypothermia Qualifiers: Encounter type: initial encounter Qualified Code(s): T68.XXXA - Hypothermia, initial encounter Is this a current diagnosis for this admission?: Yes Plan: On admission the patient's temperature was 92.8. This quite possibly was due to the severe anemia. Despite the elevated white blood cell count there is no evidence of infection. This could be a reaction to tumor. He has a Marcelino hugger in place and his hypothermia has resolved. (5) Leukemoid reaction Is this a current diagnosis for this admission?: Yes Plan: Improved with fluids. No antibiotics have been given. Hemodialysis is also likely contributing to some improvement based on physiologic stress of his severe kidney failure. White blood cell count is down to 63.2 today. We will continue to monitor. Will start antibiotics if there is evidence of infection. (6) Metabolic acidosis Is this a current diagnosis for this admission?: Yes Plan: Secondary to kidney failure. Resolved with sodium bicarbonate. pH this morning was 7.37 (7) Bilateral hydronephrosis Is this a current diagnosis for this admission?: Yes Plan: Likely due to the bladder mass. This likely contributed to the kidney failure. It is unknown how long he has had this. Serum creatinine in 2016 as well as October of this year was over 11.0. - Time Time Spent with patient: 25-34 minutes Medications reviewed and adjusted accordingly: Yes Anticipated Discharge Disposition: Unknown at this time Anticipated Discharge Timeframe: Unknown at this time
[2020-04-27 19:27] LABS: ANION GAP 10 (5-19); CALCIUM 7.6 mg/dL (8.4-10.2); CHLORIDE 99 mmol/L (98-107); GLUCOSE 127 mg/dL (75-110)
[2020-04-27 19:30] LABS: BLOOD UREA NITROGEN 78 mg/dL (7-20)
[2020-04-27 19:47] LABS: CARBON DIOXIDE 26 mmol/L (22-30)
[2020-04-27 22:33] LABS: ANION GAP 10 (5-19); BLOOD UREA NITROGEN 76 mg/dL (7-20); CALCIUM 7.8 mg/dL (8.4-10.2); CARBON DIOXIDE 28 mmol/L (22-30); CHLORIDE 97 mmol/L (98-107); GLUCOSE 117 mg/dL (75-110); POTASSIUM 4.6 mmol/L (3.6-5.0)
[2020-04-27] MEDS ORDERED: NORMAL SALINE 500 ML IV PRN (23:17)
[2020-04-27] MEDS ORDERED: NORMAL SALINE 500 ML IV ONE (23:30)
[2020-04-28 04:57] LABS: ARTERIAL BLOOD BASE EXCESS 1.8 mmol/L; ARTERIAL BLOOD H2CO3 1.04 mmol/L (1.05-1.35); ARTERIAL BLOOD HCO3 25.2 mmol/L (20-24); ARTERIAL BLOOD O2 SATURATION 97.6 % (94-98); ARTERIAL BLOOD PCO2 34.6 mmHg (35-45); ARTERIAL BLOOD PH 7.48 (7.35-7.45); ARTERIAL BLOOD PO2 92.7 mmHg (80-100); ARTERIAL BLOOD TOTAL CO2 26.3 mmol/L (23-27)
[2020-04-28 04:58] LABS: ARTERIAL BLOOD FIO2 ROOM AIR
[2020-04-28] MEDS ORDERED: HEPARIN SOD (PORCINE) 1,000 UNIT/ML 10 ML VIAL IV PRN (05:00)
[2020-04-28 05:01] LABS: HEMATOCRIT 18.3 % (37.9-51.0); MEAN CORPUSCULAR HEMOGLOBIN 28.7 pg (27.0-33.4); MEAN CORPUSCULAR HGB CONC 34.2 g/dL (32.0-36.0); MEAN CORPUSCULAR VOLUME 84 fl (80-97); PLATELET COUNT 311 10^3/uL (150-450); RED BLOOD COUNT 2.18 10^6/uL (4.35-5.55); RED CELL DISTRIBUTION WIDTH 15.8 % (11.5-14.0)
[2020-04-28 05:12] LABS: ANION GAP 11 (5-19); BLOOD UREA NITROGEN 76 mg/dL (7-20); CARBON DIOXIDE 27 mmol/L (22-30); CHLORIDE 97 mmol/L (98-107); GLUCOSE 110 mg/dL (75-110)
[2020-04-28 05:28] LABS: HEMOGLOBIN 6.3 g/dL (13.5-17.0); WHITE BLOOD COUNT 41.4 10^3/uL (4.0-10.5)
[2020-04-28 05:41] LABS: PHOSPHORUS 6.1 mg/dL (2.5-4.5)
[2020-04-28 05:42] LABS: CALCIUM 6.9 mg/dL (8.4-10.2)
[2020-04-28] MEDS: HEPARIN SOD (PORCINE) 5,000 UNIT/ML 1 ML VIAL SUBCUT SCH (06:33)
[2020-04-28 06:37] LABS: HEPATITS B SURFACE ANTIGEN Negative (Negative)
[2020-04-28 07:08] LABS: HEPATITIS B CORE AB TOT Negative (Negative)
[2020-04-28] MEDS: INSULIN LISPRO 100 UNIT/ML 3 ML VIAL SUBCUT SCH ×4 (08:00→22:44)
--- NOTE | 2020-04-28 10:26 | PDOC PROGRESS REPORT ---
Subjective Progress Note for:: 04/28/20 Subjective:: Patient is comfortable however he continues to bleed from his penis. He is receiving his third unit of packed red blood cells and 2 additional units have been ordered. He is due for dialysis later today. Reason For Visit: METABOLIC ACIDOSIS,A ON CKI, HYPERKALEMIA,ANEMIA Bladder hemorrhage Physical Exam Vital Signs: Temp Pulse Resp BP Pulse Ox 98.4 F 89 12 94/59 L 100 04/28/20 08:00 04/28/20 08:00 04/28/20 08:10 04/28/20 08:10 04/28/20 08:10 Intake & Output 04/27/20 04/28/20 04/29/20 06:59 06:59 06:59 Intake Total 3857 4517 0 Output Total 900 Balance 3857 3617 0 Weight 63.503 kg 67.3 kg General appearance: PRESENT: no acute distress, cooperative, well-developed, well-nourished Head exam: PRESENT: atraumatic, normocephalic Eye exam: PRESENT: conjunctiva pale. ABSENT: scleral icterus Ear exam: PRESENT: normal external ear exam. ABSENT: bleeding, drainage Mouth exam: PRESENT: moist, tongue midline Respiratory exam: PRESENT: clear to auscultation donald, symmetrical, unlabored. ABSENT: prolonged expiratory phas, rales, rhonchi, tachypnea, wheezes Cardiovascular exam: PRESENT: RRR, +S1, +S2. ABSENT: bradycardia, diastolic murmur, systolic murmur, tachycardia GI/Abdominal exam: PRESENT: diminished bowel sounds, soft, other - Firm mass in the suprapubic area. 13 cm by ultrasound.. ABSENT: distended, guarding, tenderness Rectal exam: PRESENT: deferred Gentrourinary exam: PRESENT: other - Bright red blood through the penis Extremities exam: ABSENT: pedal edema Musculoskeletal exam: PRESENT: normal inspection. ABSENT: deformity, dislocation Neurological exam: PRESENT: alert, awake, oriented to person, oriented to place, oriented to time, oriented to situation, CN II-XII grossly intact. ABSENT: altered, motor sensory deficit Psychiatric exam: PRESENT: flat affect. ABSENT: agitated, anxious Focused psych exam: ABSENT: delusional, paranoid, restlessness Skin exam: PRESENT: dry, pallor, warm. ABSENT: rash Results Laboratory Results: 04/28/20 04:49 08/05/20 04:49 04/26/20 04/27/20 04/27/20 20:03 09:47 18:50 WBC RBC Hgb Hct MCV MCH MCHC RDW Plt Count Carbonic Acid HCO3/H2CO3 Ratio ABG pH ABG pCO2 ABG pO2 ABG HCO3 ABG O2 Saturation ABG Base Excess FiO2 Sodium 135.6 L 134.9 L Potassium 5.2 H 4.0 D Chloride 105 99 Carbon Dioxide 14 L 26 D Anion Gap 17 10 BUN 140 H 78 H D Creatinine 17.44 H 9.66 H Est GFR ( Amer) 3 L 7 L Glucose 138 H 127 H Calcium 8.4 7.6 L Phosphorus Magnesium PTH Intact Stool Occult Blood Blood Type O POSITIVE Antibody Screen NEGATIVE 04/27/20 04/27/20 04/28/20 18:50 21:58 04:49 WBC RBC Hgb Hct MCV MCH MCHC RDW Plt Count Carbonic Acid HCO3/H2CO3 Ratio ABG pH ABG pCO2 ABG pO2 ABG HCO3 ABG O2 Saturation ABG Base Excess FiO2 Sodium 135.2 L 134.8 L Potassium 4.6 4.0 Chloride 97 L 97 L Carbon Dioxide 28 27 Anion Gap 10 11 BUN 76 H 76 H Creatinine 10.27 H 9.69 H Est GFR ( Amer) 6 L 7 L Glucose 117 H 110 Calcium 7.8 L 6.9 L* Phosphorus 6.1 H D Magnesium 1.9 PTH Intact 203.4 H Stool Occult Blood Blood Type Antibody Screen 04/28/20 04/28/20 04/28/20 04:49 04:49 08:40 WBC 41.4 H* RBC 2.18 L Hgb 6.3 L Hct 18.3 L MCV 84 MCH 28.7 MCHC 34.2 RDW 15.8 H Plt Count 311 Carbonic Acid 1.04 L HCO3/H2CO3 Ratio 24:1 ABG pH 7.48 H ABG pCO2 34.6 L ABG pO2 92.7 ABG HCO3 25.2 H ABG O2 Saturation 97.6 ABG Base Excess 1.8 FiO2 ROOM AIR Sodium Potassium Chloride Carbon Dioxide Anion Gap BUN Creatinine Est GFR ( Amer) Glucose Calcium Phosphorus Magnesium PTH Intact Stool Occult Blood POSITIVE Blood Type Antibody Screen 04/26/20 04/26/20 04/26/20 19:20 19:20 20:03 Creatine Kinase Cancelled 100 CK-MB (CK-2) Cancelled Troponin I Cancelled 04/26/20 20:03 Creatine Kinase CK-MB (CK-2) 2.73 Troponin I 0.065 Impressions: Chest X-Ray 04/27/20 00:00 IMPRESSION: New right IJ central venous catheter with tip in the right atrium. No acute cardiopulmonary disease. No pneumothorax. Renal Ultrasound 04/27/20 00:00 IMPRESSION: 1. Bilateral hydronephrosis. 2. In the pelvis there is a large solid mass versus complex fluid collection in the bladder. Assessment and Plan - Diagnosis (1) Bladder hemorrhage Is this a current diagnosis for this admission?: Yes Plan: This morning it was noted that the patient is having fairly continuous bright red blood through the penis. Spite 2 units of packed red blood cells achieving a hemoglobin of 6.9 his hemoglobin this morning is down to 6.3. I have reached out to his urologist Dr. Nadege anderson to discuss the patient. In addition I have called the [facility] transfer center. As of this morning they are not excepting medical patients however the transfer center suggested I call back later today. I have asked the nurses to insert a three- way Wade catheter for bladder irrigation. (2) Acute on chronic renal failure Qualifiers: Acute renal failure type: unspecified Chronic kidney disease stage: stage 5, not on chronic dialysis Qualified Code(s): N17.9 - Acute kidney failure, unspecified; N18.5 - Chronic kidney disease, stage 5 Is this a current diagnosis for this admission?: Yes Plan: With hemodialysis the creatinine is down to 9.69 with a BUN of 76. He is scheduled for additional dialysis today. I still do not believe his main infection in the urine. This is difficult to tell with all of the bleeding. (3) Anemia, chronic disease Is this a current diagnosis for this admission?: Yes Plan: The patient did receive erythropoietin yesterday. Main cause of anemia at this moment is the hemorrhage from the bladder mass. (4) Hyperkalemia Is this a current diagnosis for this admission?: Yes Plan: With fluids and dialysis the serum potassium is down to 4.0. Consider discontin uing the Veltassa. (5) Leukemoid reaction Is this a current diagnosis for this admission?: Yes Plan: The white blood cell count is down to 41.4 today. The patient has not received antibiotics. He has received fluid and hemodialysis. No focus of infection has been identified and so no antibiotic therapy has been initiated. (6) Bilateral hydronephrosis Is this a current diagnosis for this admission?: Yes Plan: Secondary to the bladder tumor. Ongoing work-up for the bladder mass by urology in [place]. (7) Bladder neoplasm of uncertain malignant potential Is this a current diagnosis for this admission?: Yes Plan: I did speak to Dr. anderson today. We are going to have oncology see the patient here. I have already contacted Dr. Castano. We will obtain new studies including a CT scan of the chest abdomen and pelvis. Because of the kidney failure we will obtain them tomorrow as he is having hemodialysis on Sunday. I will also ask if they can do a biopsy of the mass under CT guidance.. I will try and obtain the old records from [facility] and Dr. Anderson's urology office as well (8) Hypocalcemia Is this a current diagnosis for this admission?: Yes Plan: Serum calcium was only 6.6 this morning. I will give 1 g of calcium gluconate and recheck laboratory studies in the morning. (9) Hyperphosphatemia Is this a current diagnosis for this admission?: Yes Plan: Patient started on sevelamer. Phosphorus today was 6.1. (10) Hypermagnesemia Is this a current diagnosis for this admission?: Yes Plan: Resolved with fluids and dialysis (11) Hypothermia Qualifiers: Encounter type: initial encounter Qualified Code(s): T68.XXXA - Hypothermia, initial encounter Is this a current diagnosis for this admission?: Yes Plan: Resolved (12) Metabolic acidosis Is this a current diagnosis for this admission?: Yes Plan: Resolved with intravenous sodium bicarbonate. The infusion has been discontinued. - Plan Summary Summary: 04/28/2020 I do long discussion with Dr. Anderson this morning. I also had a discussion with the patient this afternoon. Evidently the patient was seen by a urologist last year. He was not inclined to believe the urologists assessment. Evidently the urologist told him it was cancer without a biopsy. I explained to the patient that on imaging radiologist can often tell what is characteristically tumor. He states that until we have a biopsy he does not think it is cancer. He also believes that the mass in his groin is from getting in and out of his truck and something shifted and that is why he has pressure and swelling. He is hoping that it can be drained. Evidently Dr. Anderson, at this point in his work-up, believes that the patient has stage IV bladder cancer. The patient was scheduled for biopsy this week. I will arrange for the biopsy to be performed here. I will have Dr. Castano see the patient. It is possible that the patient may require radiation therapy to shrink the tumor and possibly stop the bleeding. It may be palliative radiation as it is unclear what treatment options might be available. For the time being we will insert a 3-way catheter for bladder irrigation. We will obtain old records from Dr. Anderson. If the patient's neuropathy is from obstruction and his serum creatinine was 11 in 2016 then he has likely had this cancer for many years. Clearly his body has adapted to his kidney failure since he presented with a serum creatinine of 20 and hemoglobin of 4.0 without being critically ill. Await further assessment before discussions begin about treatment versus palliative care. - Time Time Spent with patient: 35 or more minutes Medications reviewed and adjusted accordingly: Yes Anticipated Discharge Disposition: Unknown Anticipated Discharge Timeframe: Unknown
[2020-04-28] MEDS: SEVELAMER HCL 800 MG TABLET PO SCH ×3 (11:11→17:57)
[2020-04-28] MEDS: EPOETIN ALFA-EPBX 30,000 UNIT in SYRINGE, DISPOSABLE, 1 EACH IV PRN (11:55)
[2020-04-28] MEDS: PATIROMER 8.4 GM SUSP PACKET PO SCH (17:38)
[2020-04-28] MEDS ORDERED: CALCIUM GLUC IN NACL, ISO-OSM 1 GM/50 ML RTUPB IV ONE (18:30)
--- NOTE | 2020-04-28 22:05 | PDOC PROGRESS REPORT ---
Subjective Progress Note for:: 04/28/20 Subjective:: I have seen the patient during dialysis treatment earlier this afternoon. Patient looks better and he said he also feels better. Patient is being transfused blood again during dialysis treatment. He has been apparently bleeding from his urethra and his hemoglobin remained to be low despite 2 units of packed RBC transfusion yesterday. He is supposed to receive a total of 3 units of packed RBC today. He has not made much urine output. He does not have any other further complaints. When I asked the patient again today about what the recommendation was of the urologist at [facility], he mentioned that he was recommended to have chemotherapy but he did not agree on that so he seek a second opinion with their urologist in [place]. Dr. Dugan was able to talk to his urologist, Dr. Ley in [place]. He tried to transfer the patient but [facility] is not accepting patient at this time. He is also consulting, Dr. Castano. Reason For Visit: METABOLIC ACIDOSIS,A ON CKI, HYPERKALEMIA,ANEMIA Physical Exam Vital Signs: Temp Pulse Resp BP Pulse Ox 98.6 F 89 21 H 123/69 100 04/28/20 13:37 04/28/20 13:53 04/28/20 16:00 04/28/20 15:22 04/28/20 16:00 Intake & Output 04/27/20 04/28/20 04/29/20 06:59 06:59 06:59 Intake Total 3857 4517 2890 Output Total 900 2500 Balance 3857 3617 390 Weight 63.503 kg 67.3 kg Vitals during dialysis: Blood pressure of 122/74, heart rate of 92, and oxygen saturation of 100%. His blood flow rate during dialysis is 250 mL/min and dialysate flow rate of 600 mL/min. Exam: General appearance: PRESENT: no acute distress, cooperative, cachectic Head exam: PRESENT: atraumatic, normocephalic Eye exam: PRESENT: conjunctiva pale, PERRLA. ABSENT: scleral icterus Neck exam: ABSENT: JVD Respiratory exam: PRESENT: Diminished breath sounds. ABSENT: crackles, rales, rhonchi, unlabored, wheezes Cardiovascular exam: PRESENT: Regular rate rhythm -+S1, +S2. ABSENT: diastolic murmur, systolic murmur GI/Abdominal exam: PRESENT: normal bowel sounds, soft. ABSENT: guarding, mass, tenderness exam: Palpable right scrotal mass and suprapubic mass which probable be the bladder mass felt because the patient is so thin. Extremities exam: ABSENT: No edema Neurological exam: PRESENT: alert, awake, oriented to person, place and time. Skin exam: PRESENT: dry, warm, Results Laboratory Results: 04/28/20 04:49 04/28/20 04:49 04/26/20 04/27/20 04/28/20 20:03 21:58 04:49 WBC RBC Hgb Hct MCV MCH MCHC RDW Plt Count Carbonic Acid HCO3/H2CO3 Ratio ABG pH ABG pCO2 ABG pO2 ABG HCO3 ABG O2 Saturation ABG Base Excess FiO2 Sodium 135.2 L 134.8 L Potassium 4.6 4.0 Chloride 97 L 97 L Carbon Dioxide 28 27 Anion Gap 10 11 BUN 76 H 76 H Creatinine 10.27 H 9.69 H Est GFR ( Amer) 6 L 7 L Glucose 117 H 110 Calcium 7.8 L 6.9 L* Phosphorus 6.1 H D Magnesium 1.9 Stool Occult Blood Blood Type O POSITIVE Antibody Screen NEGATIVE 04/28/20 04/28/20 04/28/20 04:49 04:49 08:40 WBC 41.4 H* RBC 2.18 L Hgb 6.3 L Hct 18.3 L MCV 84 MCH 28.7 MCHC 34.2 RDW 15.8 H Plt Count 311 Carbonic Acid 1.04 L HCO3/H2CO3 Ratio 24:1 ABG pH 7.48 H ABG pCO2 34.6 L ABG pO2 92.7 ABG HCO3 25.2 H ABG O2 Saturation 97.6 ABG Base Excess 1.8 FiO2 ROOM AIR Sodium Potassium Chloride Carbon Dioxide Anion Gap BUN Creatinine Est GFR ( Amer) Glucose Calcium Phosphorus Magnesium Stool Occult Blood POSITIVE Blood Type Antibody Screen 04/26/20 04/26/20 04/26/20 19:20 19:20 20:03 Creatine Kinase Cancelled 100 CK-MB (CK-2) Cancelled Troponin I Cancelled 04/26/20 20:03 Creatine Kinase CK-MB (CK-2) 2.73 Troponin I 0.065 Impressions: Chest X-Ray 04/27/20 00:00 IMPRESSION: New right IJ central venous catheter with tip in the right atrium. No acute cardiopulmonary disease. No pneumothorax. Renal Ultrasound 04/27/20 00:00 IMPRESSION: 1. Bilateral hydronephrosis. 2. In the pelvis there is a large solid mass versus complex fluid collection in the bladder. Assessment & Plan - Diagnosis (1) Uremia Is this a current diagnosis for this admission?: Yes Plan: Clinically improved. (2) Acute kidney injury superimposed on chronic kidney disease Is this a current diagnosis for this admission?: Yes Plan: Baseline kidney function is unknown but I think the patient has an advance chronic kidney disease and possibly end-stage renal disease secondary to ongoing obstructive uropathy exacerbated by severe volume depletion and admission. Currently the patient is anuric. We are going to support him with hemodialysis as needed. However I think overall prognosis needs to be reviewed once we know the status of his bladder mass and scrotal mass to make an appropriate determination if the patient is a good candidate for chronic dialysis treatment. We will do dialysis today for 2.5 hours, using the patient's dialysis catheter, with 3 calcium/3 potassium bath, blood flow rate of 250 mL per minute, dialysate flow rate of 600 mL per minute, ultrafiltration 2 L as tolerated, no heparin and Procrit with 30,000 units during dialysis intravenously. Patient currently being monitored throughout dialysis treatment. (3) Anemia Qualifiers: Anemia type: due to chronic kidney disease Chronic kidney disease stage: stage 5, not on chronic dialysis Qualified Code(s): N18.5 - Chronic kidney disease, stage 5; D63.1 - Anemia in chronic kidney disease Is this a current diagnosis for this admission?: Yes Plan: Due to a combination of blood loss from urethral bleeding and anemia of chronic kidney disease. (4) Obstructive uropathy Is this a current diagnosis for this admission?: Yes Plan: Patient has bilateral hydronephrosis in October 2019 for which no intervention was done and he was transferred at [facility].His repeat kidney ultrasound done yesterday still showed the bilateral hydronephrosis and a large solid mass versus complex fluid collection in the bladder. Basically the patient has a bladder outlet obstruction due to the bladder mass. This could very much relat ed to the right scrotal mass. (5) Chronic kidney disease-mineral and bone disorder Is this a current diagnosis for this admission?: Yes Plan: Phosphorus is 6.1 with PTH of 203.4. Patient is currently on Renvela. Start calcitriol orally. (6) Scrotal masses Is this a current diagnosis for this admission?: Yes Plan: Right, likely due to malignancy. (7) Leukemoid reaction Is this a current diagnosis for this admission?: Yes Plan: WBC count improving without any antibiotics. (8) Bladder mass Is this a current diagnosis for this admission?: Yes Plan: High likelihood of malignancy unless proven otherwise causing bladder outlet obstruction. (9) Urethral bleeding Is this a current diagnosis for this admission?: Yes Plan: Likely due to the bladder mass. (10) Hypocalcemia Is this a current diagnosis for this admission?: Yes Plan: We will use high calcium bath during dialysis. Patient was also given IV calcium gluconate. (11) Hyperkalemia Is this a current diagnosis for this admission?: Yes Plan: Resolved with dialysis. (12) Metabolic acidosis Is this a current diagnosis for this admission?: Yes Plan: Resolved with dialysis. (13) Hypermagnesemia Is this a current diagnosis for this admission?: Yes Plan: Resolved. (14) Hypothermia Qualifiers: Encounter type: initial encounter Qualified Code(s): T68.XXXA - Hypothermia, initial encounter Is this a current diagnosis for this admission?: Yes Plan: Resolved. (15) History of nephrolithiasis Is this a current diagnosis for this admission?: Yes - Notes Notes: Discussed case with Dr. Dugan this morning. - Time Time with patient: 15-25 minutes
[2020-04-28 22:36] LABS: HEPATITIS C QUANTITATION HCV Not Detected IU/mL (.)
[2020-04-28 23:00] LABS: HEMATOCRIT 29.5 % (37.9-51.0); MEAN CORPUSCULAR HEMOGLOBIN 28.7 pg (27.0-33.4); MEAN CORPUSCULAR VOLUME 85 fl (80-97); PLATELET COUNT 289 10^3/uL (150-450); RED BLOOD COUNT 3.49 10^6/uL (4.35-5.55)
[2020-04-28 23:35] LABS: WHITE BLOOD COUNT 49.4 10^3/uL (4.0-10.5)
[2020-04-29] MEDS ORDERED: METOPROLOL TARTRATE PF/INJ 5 MG/5 ML SDV IV PRN ×2 (03:46→03:50)
[2020-04-29 07:12] LABS: INTERNATIONAL RATION (INR) 1.23; PROTHROMBIN TIME 15.7 SEC (11.4-15.4)
[2020-04-29 07:13] LABS: FIBRINOGEN 582 mg/dL (209-497)
[2020-04-29 07:14] LABS: PARTIAL THROMBOPLASTIN TIME 42.5 SEC (23.5-35.8)
[2020-04-29 07:25] LABS: HEMATOCRIT 29.8 % (37.9-51.0); HEMOGLOBIN 10.2 g/dL (13.5-17.0); MEAN CORPUSCULAR HEMOGLOBIN 28.9 pg (27.0-33.4); MEAN CORPUSCULAR HGB CONC 34.3 g/dL (32.0-36.0); MEAN CORPUSCULAR VOLUME 84 fl (80-97); PLATELET COUNT 285 10^3/uL (150-450); RED BLOOD COUNT 3.54 10^6/uL (4.35-5.55); RED CELL DISTRIBUTION WIDTH 15.9 % (11.5-14.0)
[2020-04-29] MEDS: PATIROMER 8.4 GM SUSP PACKET PO SCH (07:30)
[2020-04-29 07:32] LABS: ALBUMIN 2.4 g/dL (3.5-5.0); ANION GAP 10 (5-19); BLOOD UREA NITROGEN 48 mg/dL (7-20); CALCIUM 7.7 mg/dL (8.4-10.2); CARBON DIOXIDE 28 mmol/L (22-30); CHLORIDE 96 mmol/L (98-107); GLUCOSE 90 mg/dL (75-110); PHOSPHORUS 5.2 mg/dL (2.5-4.5); POTASSIUM 3.9 mmol/L (3.6-5.0)
[2020-04-29 08:21] LABS: WHITE BLOOD COUNT 48.1 10^3/uL (4.0-10.5)
--- NOTE | 2020-04-29 08:49 | PDOC CONSULTATION ---
Consultation Consult Date: 04/29/20 Attending physician:: DIMPLE BASS Provider Consulted: MARTIN CHAVES Consult reason:: Likely bladder cancer, hematuria, pelvic mass History of Present Illness Admission Date/PCP: 04/27/20 01:30 CASSANDRA SCHREIBER Patient complains of: Severe hematuria, weakness, weight loss History of Present Illness: FIDENCIO SIMMONS JR is a 64 year old male with longstanding history of hematuria. He tells me the first episode was in 2016, and his work-up has been complicated with some noncompliance it appears. But regardless he was recently seen by Dr. Nadege anderson of [place] [facility], and was set up to do cystoscopy with biopsy. But ultimately presented here because of severe continued hematuria, upon presentation on physical exam it was noted that he had both a lower right abdominal mass as well as a right groin mass. He has been placed on Wade catheter as well as continuous bladder irrigation. He does have thick hematuria ongoing. His creatinine is highly elevated as well. And he has been started on dialysis. We were consulted yesterday for our opinion, and patient needs to have CT of the chest abdomen pelvis and this is ordered for today. Also patient is having extreme hematuria so we gave orders for nursing to do cytology on the urine. Of note he has had about a 40 pound weight loss as well. Past Medical History Renal/ Medical History: Reports: Nephrolithiasis Psychiatric Medical History: Denies: Depression Past Surgical History Past Surgical History: Reports: None Social History Information Source: Patient Lives with: Alone Smoking Status: Current Some Day Smoker - Half a pack per day Electronic Cigarette use?: No Frequency of Alcohol Use: None Hx Recreational Drug Use: No - Advance Directive Resuscitation Status: Full Code Family History Family History: Reviewed & Not Pertinent Parental Family History Reviewed: Yes Children Family History Reviewed: Yes Sibling(s) Family History Reviewed.: Yes Medication/Allergy Home Medications: No Home Medications 11/05/19 Allergies/Adverse Reactions: No Known Allergies Allergy (Verified 04/27/20 09:01) Review of Systems Constitutional: PRESENT: anorexia, fatigue, weakness Cardiovascular: PRESENT: dyspnea on exertion Gastrointestinal: PRESENT: abdominal pain Genitourinary: PRESENT: difficulty urinating, dysuria, hematuria Neurological: PRESENT: weakness Physical Exam Vital Signs: Temp Pulse Resp BP Pulse Ox 98.2 F 111 H 20 109/57 L 100 08/06/20 03:49 04/29/20 06:47 04/29/20 03:49 04/29/20 03:49 04/29/20 03:49 Intake & Output 04/28/20 04/29/20 04/30/20 06:59 06:59 06:59 Intake Total 4517 3390 Output Total 900 5800 Balance 3617 -2410 Weight 67.3 kg 67 kg General appearance: PRESENT: no acute distress Head exam: PRESENT: atraumatic Mouth exam: PRESENT: dry mucosa Neck exam: ABSENT: carotid bruit, JVD, lymphadenopathy, thyromegaly Respiratory exam: PRESENT: clear to auscultation donald. ABSENT: rales, rhonchi, wheezes Cardiovascular exam: PRESENT: RRR. ABSENT: diastolic murmur, rubs, systolic murmur GI/Abdominal exam: PRESENT: normal bowel sounds, soft. ABSENT: distended, guarding, mass, organolmegaly, rebound, tenderness Rectal exam: PRESENT: deferred Gentrourinary exam: PRESENT: indwelling catheter, other - Right pelvic swelling/ mass noted Neurological exam: PRESENT: alert, awake, oriented to person, oriented to place, oriented to time, oriented to situation, CN II-XII grossly intact. ABSENT: motor sensory deficit Results Laboratory Results: 04/29/20 06:45 04/29/20 06:45 04/26/20 04/28/20 04/28/20 20:03 08:40 20:25 WBC 49.4 H* RBC 3.49 L Hgb 10.0 L D Hct 29.5 L MCV 85 MCH 28.7 MCHC 34.0 RDW 16.0 H Plt Count 289 Sodium Potassium Chloride Carbon Dioxide Anion Gap BUN Creatinine Est GFR ( Amer) Glucose Calcium Phosphorus Magnesium Albumin Stool Occult Blood POSITIVE Blood Type O POSITIVE Antibody Screen NEGATIVE 04/29/20 04/29/20 06:45 06:45 WBC 48.1 H* RBC 3.54 L Hgb 10.2 L Hct 29.8 L MCV 84 MCH 28.9 MCHC 34.3 RDW 15.9 H Plt Count 285 Sodium 133.8 L Potassium 3.9 Chloride 96 L Carbon Dioxide 28 Anion Gap 10 BUN 48 H Creatinine 7.40 H Est GFR ( Amer) 9 L Glucose 90 Calcium 7.7 L Phosphorus 5.2 H Magnesium 2.0 Albumin 2.4 L Stool Occult Blood Blood Type Antibody Screen 04/26/20 04/26/20 04/26/20 19:20 19:20 20:03 Creatine Kinase Cancelled 100 CK-MB (CK-2) Cancelled Troponin I Cancelled 04/26/20 20:03 Creatine Kinase CK-MB (CK-2) 2.73 Troponin I 0.065 Impressions: Chest X-Ray 04/27/20 00:00 IMPRESSION: New right IJ central venous catheter with tip in the right atrium. No acute cardiopulmonary disease. No pneumothorax. Renal Ultrasound 04/27/20 00:00 IMPRESSION: 1. Bilateral hydronephrosis. 2. In the pelvis there is a large solid mass versus complex fluid collection in the bladder. Assessment & Plan - Diagnosis (1) Bladder neoplasm of uncertain malignant potential Is this a current diagnosis for this admission?: Yes Plan: Patient does have a bladder mass and this certainly appears to be something like a primary urothelial carcinoma. However await imaging. Sent cytology on what ever was in the Wade bag. Ultimately he will need CT-guided biopsy. (2) Anemia Qualifiers: Anemia type: due to chronic kidney disease Chronic kidney disease stage: on chronic dialysis Qualified Code(s): N18.6 - End stage renal disease; D63.1 - Anemia in chronic kidney disease; Z99.2 - Dependence on renal dialysis Is this a current diagnosis for this admission?: Yes Plan: Probably some element of anemia of chronic disease although we do not have recent iron studies. Patient is already been transfused several days ago. Probably would not be useful now. Transfuse if needed. GABRIELA if needed. - Time Time Spent: Greater than 70 Minutes - Inpatient Certification Based on my medical assessment, after consideration of the patient's comorbidities, presenting symptoms, or acuity I expect that the services needed warrant INPATIENT care.: Yes I certify that my determination is in accordance with my understanding of Medicare's requirements for reasonable and necessary INPATIENT services [42 CFR 412.3e].: Yes Medical Necessity: Risk of Complication if Not Cared For in Hospital
[2020-04-29] MEDS: INSULIN LISPRO 100 UNIT/ML 3 ML VIAL SUBCUT SCH ×4 (08:57→22:26)
[2020-04-29] MEDS: SEVELAMER HCL 800 MG TABLET PO SCH ×3 (09:18→18:12)
[2020-04-29] MEDS: CALCITRIOL 0.25 MCG CAPSULE PO SCH (09:18)
--- NOTE | 2020-04-29 12:51 | RADIOLOGY REPORT (SQ) ---
EXAM DESCRIPTION: CT CHEST WITH; CT ABD/PELVIS WITH IV ORAL IMAGES COMPLETED DATE/TIME: 04/29/2020 12:08 pm REASON FOR STUDY: assess for mets; Assess for mult lesions. Probably malignant COMPARISON: 01/11/2016 and 11/07/2019 CONTRAST TYPE AND DOSE: contrast/concentration: Isovue 350.00 mmol/ml; Total Contrast Delivered: 77. 0 ml; Total Saline Delivered: 67.0 ml RENAL FUNCTION: Patient undergoing dialysis. TECHNIQUE: CT scan of the chest performed using helical scanning technique with dynamic intravenous contrast injection. Images reviewed with lung, soft tissue and bone windows. Reconstructed coronal a nd sagittal MPR images reviewed. All images stored on PACS. CT scan of the abdomen and pelvis performed with intravenous and with oral contrastusing helical scan deerk technique with dynamic intravenous contrast injection. Images reviewed with lung, soft tissue a nd bone windows. Reconstructed coronal and sagittal MPR images reviewed. Delayed images for evaluat ion of the urinary system also acquired and evaluated. All images stored on PACS. All CT scanners at this facility use dose modulation, iterative reconstruction, and/or weight based d osing when appropriate to reduce radiation dose to as low as reasonably achievable (ALARA). [facility]: Dose Right [facility]: CareDose [facility]: Dose Right [facility]: Teradose 4D [facility]: [employer] RADIATION DOSE: CT Rad equipment meets quality standard of care and radiation dose reduction techniq ues were employed. CTDIvol: 4.4 - 4.5 mGy. DLP: 1082 mGy-cm. . LIMITATIONS: None. FINDINGS: CHEST: LUNGS AND PLEURA: Re- demonstration of emphysematous changes with scattered peripheral air cysts. No nodule/. No focal consolidation. Trace right-sided pleural effusion. No pneumothorax. HILAR AND MEDIASTINAL STRUCTURES: No identified masses or abnormal nodes. HEART AND VASCULAR STRUCTURES: No aneurysm or dissection. No central pulmonary emboli. No pericardi al effusion. HARDWARE: Right internal jugular vein catheter terminates at the cavoatrial junction. THYROID AND OTHER SOFT TISSUES: No masses. No adenopathy. BONES: No significant finding. OTHER: No other significant finding. ABDOMEN AND PELVIS: LIVER: Normal size. No masses. No dilated ducts. SPLEEN: Normal size. No focal lesions. PANCREAS: No masses. No significant calcifications. No adjacent inflammation or peripancreatic fluid collections. Pancreatic duct not dilated. GALLBLADDER: No identified stones by CT criteria. No inflammatory changes to suggest cholecystitis. ADRENAL GLANDS: No significant masses or asymmetry. RIGHT KIDNEY AND URETER: Marked hydronephrosis and ureterectasis. No solid mass. No significant cassandra cification. Delayed excretion of intravenous contrast. LEFT KIDNEY AND URETER: Marked hydronephrosis and ureterectasis. No solid mass. No significant calc ification. Delayed excretion of intravenous contrast. AORTA AND VESSELS: Stable infrarenal abdominal aortic aneurysm. No dissection. Renal arteries, SMA, c eliac without stenosis. RETROPERITONEUM: Few scattered retroperitoneal lymph nodes are demonstrated. No bulky lymphadenopath y. BOWEL AND PERITONEAL CAVITY: No masses or inflammatory changes. No free fluid or peritoneal masses. APPENDIX: Not visualized. ABDOMINAL WALL: No masses. No hernias. PELVIS: Marked interval growth of the previously demonstrated bladder mass which is poorly delineated and difficult to measure ; estimate approximately 14.0 x 11.7 x 17.2 cm. The appearance of intralum inal gas may be on the basis of instrumentation. Of note, the Wade catheter balloon is inflated wit hin the penis, adjacent to what appears to be a large penile mass ; it remains unclear whether this r epresents metastatic versus extension of the cystic neoplasm. BONES: Degenerative changes are seen of the hips and spine. No suspicious lytic or blastic osseous l esions. OTHER: No other significant finding. IMPRESSION: No pneumothorax. No evidence of intrathoracic metastatic disease. Right internal jugul ar catheter terminates at the cavoatrial junction. Relative to 11/07/2019 imaging there has been marked growth of a bladder mass measuring on the order o f 14.0 x 11.7 x 17.2 cm on today's examination. There appears to be extension versus metastasis into the penis. The Wade catheter balloon is positioned within the posterior penis. The above mass res ults in marked bilateral hydronephrosis and ureterectasis with delayed renal excretion of the intrave nous contrast. Scattered retroperitoneal lymph nodes without bulky lymphadenopathy. TECHNICAL DOCUMENTATION: JOB ID: [id number] Quality ID # [id number]: Final reports with documentation of one or more dose reduction techniques (e.g., Au tomated exposure control, adjustment of the mA and/or kV according to patient size, use of iterative reconstruction technique) 2010 [employer]- All Rights Reserved Reading location - IP/workstation name: [email or web address]
--- NOTE | 2020-04-29 15:25 | PDOC PROGRESS REPORT ---
Subjective Progress Note for:: 04/29/20 Subjective:: The patient states that he is having some difficulties remaining in the hospital. He feels trapped. He lives locally and does not understand why he cannot go home and complete the work-up as an outpatient. He has no other complaints. He declines medication for anxiety. Reason For Visit: METABOLIC ACIDOSIS,A ON CKI, HYPERKALEMIA,ANEMIA Likely metastatic bladder cancer Physical Exam Vital Signs: Temp Pulse Resp BP Pulse Ox 98.2 F 111 H 20 109/57 L 100 04/29/20 03:49 04/29/20 06:47 04/29/20 03:49 04/29/20 03:49 04/29/20 03:49 Intake & Output 04/28/20 04/29/20 04/30/20 06:59 06:59 06:59 Intake Total 4517 3390 Output Total 900 5800 Balance 3617 -2410 Weight 67.3 kg 67 kg General appearance: PRESENT: cooperative, mild distress, well-developed Head exam: PRESENT: atraumatic, normocephalic Ear exam: PRESENT: normal external ear exam. ABSENT: bleeding, drainage Mouth exam: PRESENT: moist, tongue midline Neck exam: PRESENT: full ROM. ABSENT: carotid bruit, JVD, lymphadenopathy Respiratory exam: PRESENT: clear to auscultation donald, symmetrical, unlabored. ABSENT: accessory muscle use, decreased breath sounds, prolonged expiratory phas, rales, rhonchi, tachypnea, wheezes Cardiovascular exam: PRESENT: RRR, +S1, +S2. ABSENT: bradycardia, diastolic murmur, irregular rhythm, systolic murmur, tachycardia GI/Abdominal exam: PRESENT: mass - Large suprapubic mass, normal bowel sounds, soft. ABSENT: ascites, tenderness Rectal exam: PRESENT: deferred Gentrourinary exam: PRESENT: other - Swelling/mass in the right scrotum base of the penis area Extremities exam: PRESENT: full ROM. ABSENT: pedal edema Musculoskeletal exam: PRESENT: ambulatory, normal inspection. ABSENT: deformity, dislocation Neurological exam: PRESENT: alert, awake, oriented to person, oriented to place, oriented to time, oriented to situation, CN II-XII grossly intact. ABSENT: altered, motor sensory deficit Psychiatric exam: PRESENT: flat affect. ABSENT: agitated, anxious Focused psych exam: ABSENT: delusional, paranoid, restlessness Skin exam: PRESENT: dry, normal color, warm. ABSENT: cyanosis, erythema, rash Results Laboratory Results: 04/29/20 06:45 04/29/20 06:45 04/28/20 04/29/20 04/29/20 20:25 06:45 06:45 WBC 49.4 H* 48.1 H* RBC 3.49 L 3.54 L Hgb 10.0 L D 10.2 L Hct 29.5 L 29.8 L MCV 85 84 MCH 28.7 28.9 MCHC 34.0 34.3 RDW 16.0 H 15.9 H Plt Count 289 285 Sodium 133.8 L Potassium 3.9 Chloride 96 L Carbon Dioxide 28 Anion Gap 10 BUN 48 H Creatinine 7.40 H Est GFR ( Amer) 9 L Glucose 90 Calcium 7.7 L Phosphorus 5.2 H Magnesium 2.0 Albumin 2.4 L 04/26/20 04/26/20 04/26/20 19:20 19:20 20:03 Creatine Kinase Cancelled 100 CK-MB (CK-2) Cancelled Troponin I Cancelled 04/26/20 20:03 Creatine Kinase CK-MB (CK-2) 2.73 Troponin I 0.065 Impressions: Chest X-Ray 04/27/20 00:00 IMPRESSION: New right IJ central venous catheter with tip in the right atrium. No acute cardiopulmonary disease. No pneumothorax. Renal Ultrasound 04/27/20 00:00 IMPRESSION: 1. Bilateral hydronephrosis. 2. In the pelvis there is a large solid mass versus complex fluid collection in the bladder. Abdomen/Pelvis CT 04/29/20 08:00 IMPRESSION: No pneumothorax. No evidence of intrathoracic metastatic disease. Right internal jugular catheter terminates at the cavoatrial junction. Relative to 11/07/2019 imaging there has been marked growth of a bladder mass measuring on the order of 14.0 x 11.7 x 17.2 cm on today's examination. There appears to be extension versus metastasis into the penis. The Wade catheter balloon is positioned within the posterior penis. The above mass results in marked bilateral hydronephrosis and ureterectasis with delayed renal excretion of the intravenous contrast. Scattered retroperitoneal lymph nodes without bulky lymphadenopathy. Chest CT 04/29/20 08:00 IMPRESSION: No pneumothorax. No evidence of intrathoracic metastatic disease. Right internal jugular catheter terminates at the cavoatrial junction. Relative to 11/07/2019 imaging there has been marked growth of a bladder mass measuring on the order of 14.0 x 11.7 x 17.2 cm on today's examination. There appears to be extension versus metastasis into the penis. The Wade catheter balloon is positioned within the posterior penis. The above mass results in marked bilateral hydronephrosis and ureterectasis with delayed renal excretion of the intravenous contrast. Scattered retroperitoneal lymph nodes without bulky lymphadenopathy. Assessment and Plan - Diagnosis (1) Acute on chronic renal failure Qualifiers: Acute renal failure type: unspecified Chronic kidney disease stage: stage 5, not on chronic dialysis Qualified Code(s): N17.9 - Acute kidney failure, unspecified; N18.5 - Chronic kidney disease, stage 5 Is this a current diagnosis for this admission?: Yes Plan: Patient is responding very nicely to hemodialysis. Difficult to discern urine output due to continuous bladder irrigation (2) Anemia, chronic disease Is this a current diagnosis for this admission?: Yes Plan: Underlying anemia of chronic kidney disease however acutely worsened with bladder hemorrhage. Hemoglobin is actually been stable for the last 2 days. (3) Hyperkalemia Is this a current diagnosis for this admission?: Yes Plan: Resolved with dialysis (4) Hypothermia Qualifiers: Encounter type: initial encounter Qualified Code(s): T68.XXXA - Hypothermia, initial encounter Is this a current diagnosis for this admission?: Yes Plan: Resolved (5) Leukemoid reaction Is this a current diagnosis for this admission?: Yes Plan: White blood cell count is slightly increased from 2 days ago. We will continue to monitor. It is still believe that this is a leukemoid reaction related to probable malignancy. (6) Metabolic acidosis Is this a current diagnosis for this admission?: Yes Plan: From kidney disease. Resolved. (7) Bilateral hydronephrosis Is this a current diagnosis for this admission?: Yes Plan: Secondary to obstruction from likely bladder mass. Remains present on CT scan from earlier today (8) Bladder hemorrhage Is this a current diagnosis for this admission?: Yes Plan: The patient has been having marked hematuria over the last several days. A Wade catheter was inserted for continuous bladder irrigation. It does appear that the bleeding is lessened somewhat. The hemoglobin is also stable for the last 2 CBCs. Continue to monitor. (9) Pneumothorax Qualifiers: Pneumothorax type: postprocedural Qualified Code(s): J95.811 - Postprocedural pneumothorax Is this a current diagnosis for this admission?: Yes Plan: There is a small right apical pneumothorax. It is likely secondary to the dialysis catheter placement. We will recheck with chest x-rays. - Plan Summary Summary: 04/28/2020 I do long discussion with Dr. Ley this morning. I also had a discussion with the patient this afternoon. Evidently the patient was seen by a urologist last year. He was not inclined to believe the urologists assessment. Evidently the urologist told him it was cancer without a biopsy. I explained to the patient that on imaging radiologist can often tell what is characteristically tumor. He states that until we have a biopsy he does not think it is cancer. He also believes that the mass in his groin is from getting in and out of his truck and something shifted and that is why he has pressure and swelling. He is hoping that it can be drained. Evidently Dr. Ley, at this point in his work-up, believes that the patient has stage IV bladder cancer. The patient was scheduled for biopsy this week. I will arrange for the biopsy to be performed here. I will have Dr. Castano see the patient. It is possible that the patient may require radiation therapy to shrink the tumor and possibly stop the bleeding. It may be palliative radiation as it is unclear what treatment options might be available. For the time being we will insert a 3-way catheter for bladder irrigation. We will obtain old records from Dr. Ley. If the patient's neuropathy is from obstruction and his serum creatinine was 11 in 2016 then he has likely had this cancer for many years. Clearly his body has adapted to his kidney failure since he presented with a serum creatinine of 20 and hemoglobin of 4.0 without being critically ill. Await further assessment before discussions begin about treatment versus palliative care. - Time Time Spent with patient: 25-34 minutes Medications reviewed and adjusted accordingly: Yes Anticipated Discharge Disposition: Home, Self Care Anticipated Discharge Timeframe: Pending biopsy results
[2020-04-30] MEDS ORDERED: EPOETIN ALFA-EPBX 2,000 UNIT, EPOETIN ALFA-EPBX 3,000 UNIT in SYRINGE, DISPOSABLE, 1 EACH IV PRN (05:00)
[2020-04-30] MEDS ORDERED: HEPARIN SOD (PORCINE) 1,000 UNIT/ML 10 ML VIAL IV PRN (05:00)
[2020-04-30] MEDS ORDERED: NORMAL SALINE 1000 ML 1,000 ML IV PRN (05:00)
[2020-04-30] MEDS: PATIROMER 8.4 GM SUSP PACKET PO SCH (06:04)
[2020-04-30 06:28] LABS: HEMATOCRIT 28.8 % (37.9-51.0); HEMOGLOBIN 9.8 g/dL (13.5-17.0); MEAN CORPUSCULAR HEMOGLOBIN 28.9 pg (27.0-33.4); MEAN CORPUSCULAR HGB CONC 33.8 g/dL (32.0-36.0); MEAN CORPUSCULAR VOLUME 85 fl (80-97); PLATELET COUNT 328 10^3/uL (150-450); RED BLOOD COUNT 3.38 10^6/uL (4.35-5.55); RED CELL DISTRIBUTION WIDTH 16.2 % (11.5-14.0)
[2020-04-30 06:46] LABS: ANION GAP 10 (5-19); BLOOD UREA NITROGEN 58 mg/dL (7-20); CALCIUM 7.6 mg/dL (8.4-10.2); CARBON DIOXIDE 25 mmol/L (22-30); CHLORIDE 95 mmol/L (98-107); GLUCOSE 105 mg/dL (75-110); PHOSPHORUS 5.9 mg/dL (2.5-4.5); POTASSIUM 4.2 mmol/L (3.6-5.0)
[2020-04-30 07:48] LABS: WHITE BLOOD COUNT 47.5 10^3/uL (4.0-10.5)
--- NOTE | 2020-04-30 08:27 | PDOC PROGRESS REPORT ---
Subjective Progress Note for:: 04/30/20 Subjective:: Reviewed imaging, have discussed with Dr. farrell about hopeful CT-guided biopsy of the bladder mass, he is unsure of what area exactly the biopsy. Therefore he is going to discuss with Dr. Hightower of urology at [facility] to look at images and see what he thinks. He will let me know. Reason For Visit: METABOLIC ACIDOSIS,A ON CKI, HYPERKALEMIA,ANEMIA Physical Exam Vital Signs: Temp Pulse Resp BP Pulse Ox 98.3 F 124 H 18 103/70 100 04/30/20 00:39 04/30/20 02:00 04/30/20 00:39 04/30/20 00:39 04/30/20 00:39 Intake & Output 04/29/20 04/30/20 05/01/20 06:59 06:59 06:59 Intake Total 3390 Output Total 5800 6550 Balance -2410 -6550 Weight 67 kg 74.2 kg General appearance: PRESENT: no acute distress, well-developed, well-nourished Head exam: PRESENT: atraumatic, normocephalic Eye exam: PRESENT: conjunctiva pink, EOMI, PERRLA. ABSENT: scleral icterus Ear exam: PRESENT: normal external ear exam Mouth exam: PRESENT: moist, tongue midline Neck exam: ABSENT: carotid bruit, JVD, lymphadenopathy, thyromegaly Respiratory exam: PRESENT: clear to auscultation donald. ABSENT: rales, rhonchi, wheezes Cardiovascular exam: PRESENT: RRR. ABSENT: diastolic murmur, rubs, systolic murmur Pulses: PRESENT: normal dorsalis pedis pul Vascular exam: PRESENT: normal capillary refill GI/Abdominal exam: PRESENT: normal bowel sounds, soft. ABSENT: distended, g uarding, mass, organolmegaly, rebound, tenderness Rectal exam: PRESENT: deferred Extremities exam: PRESENT: full ROM. ABSENT: calf tenderness, clubbing, pedal edema Neurological exam: PRESENT: alert, awake, oriented to person, oriented to place, oriented to time, oriented to situation, CN II-XII grossly intact. ABSENT: mo tor sensory deficit Psychiatric exam: PRESENT: appropriate affect, normal mood. ABSENT: homicidal ideation, suicidal ideation Skin exam: PRESENT: dry, intact, warm. ABSENT: cyanosis, rash Results Laboratory Results: 04/30/20 05:40 04/30/20 05:40 04/30/20 04/30/20 05:40 05:40 WBC 47.5 H* RBC 3.38 L Hgb 9.8 L Hct 28.8 L MCV 85 MCH 28.9 MCHC 33.8 RDW 16.2 H Plt Count 328 Sodium 130.0 L Potassium 4.2 Chloride 95 L Carbon Dioxide 25 Anion Gap 10 BUN 58 H Creatinine 8.55 H Est GFR ( Amer) 8 L Glucose 105 Calcium 7.6 L Phosphorus 5.9 H Magnesium 2.0 04/26/20 04/26/20 04/26/20 19:20 19:20 20:03 Creatine Kinase Cancelled 100 CK-MB (CK-2) Cancelled Troponin I Cancelled 04/26/20 20:03 Creatine Kinase CK-MB (CK-2) 2.73 Troponin I 0.065 Impressions: Chest X-Ray 04/27/20 00:00 IMPRESSION: New right IJ central venous catheter with tip in the right atrium. No acute cardiopulmonary disease. No pneumothorax. Renal Ultrasound 04/27/20 00:00 IMPRESSION: 1. Bilateral hydronephrosis. 2. In the pelvis there is a large solid mass versus complex fluid collection in the bladder. Abdomen/Pelvis CT 04/29/20 08:00 IMPRESSION: No pneumothorax. No evidence of intrathoracic metastatic disease. Right internal jugular catheter terminates at the cavoatrial junction. Relative to 11/07/2019 imaging there has been marked growth of a bladder mass measuring on the order of 14.0 x 11.7 x 17.2 cm on today's examination. There appears to be extension versus metastasis into the penis. The Wade catheter balloon is positioned within the posterior penis. The above mass results in marked bilateral hydronephrosis and ureterectasis with delayed renal excretion of the intravenous contrast. Scattered retroperitoneal lymph nodes without bulky lymphadenopathy. Chest CT 04/29/20 08:00 IMPRESSION: No pneumothorax. No evidence of intrathoracic metastatic disease. Right internal jugular catheter terminates at the cavoatrial junction. Relative to 11/07/2019 imaging there has been marked growth of a bladder mass measuring on the order of 14.0 x 11.7 x 17.2 cm on today's examination. There appears to be extension versus metastasis into the penis. The Wade catheter balloon is positioned within the posterior penis. The above mass results in marked bilateral hydronephrosis and ureterectasis with delayed renal excretion of the intravenous contrast. Scattered retroperitoneal lymph nodes without bulky lymphadenopathy. Assessment & Plan - Diagnosis (1) Bladder neoplasm of uncertain malignant potential Is this a current diagnosis for this admission?: Yes Plan: Appears to be a primary bladder tumor per CT that is fungating probably to the right side of the pelvis as well as into the groin. Does not seem to have widely metastatic disease although there are retroperitoneal nodes that are probably related. (2) Anemia Qualifiers: Anemia type: due to chronic kidney disease Chronic kidney disease stage: on chronic dialysis Qualified Code(s): N18.6 - End stage renal disease; D63.1 - Anemia in chronic kidney disease; Z99.2 - Dependence on renal dialysis Is this a current diagnosis for this admission?: Yes Plan: Hemoglobin stable will follow - Time Time Spent with patient: 35 or more minutes
[2020-04-30] MEDS: INSULIN LISPRO 100 UNIT/ML 3 ML VIAL SUBCUT SCH ×4 (09:57→22:31)
[2020-04-30] MEDS: SEVELAMER HCL 800 MG TABLET PO SCH ×3 (09:57→17:25)
[2020-04-30] MEDS: CALCITRIOL 0.25 MCG CAPSULE PO SCH (10:06)
--- NOTE | 2020-04-30 17:50 | PDOC PROGRESS REPORT ---
Subjective Progress Note for:: 04/30/20 Subjective:: The patient is frustrated. He was talking about leaving. The CT scan showed a large mass infiltrating the bladder with involvement of the penis. There are some retroperitoneal lymph nodes. The patient was made aware that the interventional radiologist felt that percutaneous biopsy was too risky. He suggests biopsy through a cystoscope. As the patient has an established relationship with Dr. Ley, his urologist, in [place] I will attempt to transfer the patient to [facility]. Initial attempt was aborted due to lack of beds. Reason For Visit: METABOLIC ACIDOSIS,A ON CKI, HYPERKALEMIA,ANEMIA Physical Exam Vital Signs: Temp Pulse Resp BP Pulse Ox 98.5 F 111 H 16 98/63 L 99 04/30/20 16:06 04/30/20 16:06 04/30/20 16:06 04/30/20 16:06 04/30/20 16:06 Intake & Output 04/29/20 04/30/20 05/01/20 06:59 06:59 06:59 Intake Total 3390 240 Output Total 5800 6550 625 Balance -2410 -6550 -385 Weight 67 kg 74.2 kg General appearance: PRESENT: cooperative, mild distress, well-developed Head exam: PRESENT: atraumatic, normocephalic Eye exam: PRESENT: conjunctiva pale. ABSENT: scleral icterus - Dirty sclera Ear exam: PRESENT: normal external ear exam. ABSENT: bleeding, drainage Mouth exam: PRESENT: moist, tongue midline Respiratory exam: PRESENT: clear to auscultation donald, symmetrical, unlabored. ABSENT: rales, rhonchi, tachypnea, wheezes Cardiovascular exam: PRESENT: RRR, +S1, +S2. ABSENT: bradycardia, diastolic murmur, irregular rhythm, systolic murmur, tachycardia GI/Abdominal exam: PRESENT: mass - Again there is a midline mass in the suprapubic area with extension into the penis right scrotal area, normal bowel sounds. ABSENT: distended, tenderness Rectal exam: PRESENT: deferred Gentrourinary exam: PRESENT: indwelling catheter - Three-way irrigation catheter in the bladder. Continuous bladder irrigation underway. Still with blood. Musculoskeletal exam: PRESENT: ambulatory, normal inspection Neurological exam: PRESENT: alert, awake, oriented to person, oriented to place, oriented to time, oriented to situation, CN II-XII grossly intact. ABSENT: altered, motor sensory deficit Psychiatric exam: PRESENT: flat affect, other - Patient reports that he feels closed in. He would like to get out of the hospital. Because he lives locally he would be able to follow-up with appointments.. ABSENT: agitated, anxious Focused psych exam: ABSENT: delusional, paranoid, restlessness Skin exam: PRESENT: dry, warm. ABSENT: rash Results Laboratory Results: 04/30/20 05:40 04/30/20 05:40 04/30/20 04/30/20 05:40 05:40 WBC 47.5 H* RBC 3.38 L Hgb 9.8 L Hct 28.8 L MCV 85 MCH 28.9 MCHC 33.8 RDW 16.2 H Plt Count 328 Sodium 130.0 L Potassium 4.2 Chloride 95 L Carbon Dioxide 25 Anion Gap 10 BUN 58 H Creatinine 8.55 H Est GFR ( Amer) 8 L Glucose 105 Calcium 7.6 L Phosphorus 5.9 H Magnesium 2.0 04/26/20 04/26/20 04/26/20 19:20 19:20 20:03 Creatine Kinase Cancelled 100 CK-MB (CK-2) Cancelled Troponin I Cancelled 04/26/20 20:03 Creatine Kinase CK-MB (CK-2) 2.73 Troponin I 0.065 Impressions: Chest X-Ray 04/27/20 00:00 IMPRESSION: New right IJ central venous catheter with tip in the right atrium. No acute cardiopulmonary disease. No pneumothorax. Renal Ultrasound 04/27/20 00:00 IMPRESSION: 1. Bilateral hydronephrosis. 2. In the pelvis there is a large solid mass versus complex fluid collection in the bladder. Abdomen/Pelvis CT 04/29/20 08:00 IMPRESSION: No pneumothorax. No evidence of intrathoracic metastatic disease. Right internal jugular catheter terminates at the cavoatrial junction. Relative to 11/07/2019 imaging there has been marked growth of a bladder mass measuring on the order of 14.0 x 11.7 x 17.2 cm on today's examination. There appears to be extension versus metastasis into the penis. The Wade catheter balloon is positioned within the posterior penis. The above mass results in marked bilateral hydronephrosis and ureterectasis with delayed renal excretion of the intravenous contrast. Scattered retroperitoneal lymph nodes without bulky lymphadenopathy. Chest CT 04/29/20 08:00 IMPRESSION: No pneumothorax. No evidence of intrathoracic metastatic disease. Right internal jugular catheter terminates at the cavoatrial junction. Relative to 11/07/2019 imaging there has been marked growth of a bladder mass measuring on the order of 14.0 x 11.7 x 17.2 cm on today's examination. There appears to be extension versus metastasis into the penis. The Wade catheter balloon is positioned within the posterior penis. The above mass results in marked bilateral hydronephrosis and ureterectasis with delayed renal excretion of the intravenous contrast. Scattered retroperitoneal lymph nodes without bulky lymphadenopathy. Assessment and Plan - Diagnosis (1) Acute on chronic renal failure Qualifiers: Acute renal failure type: unspecified Chronic kidney disease stage: stage 5, not on chronic dialysis Qualified Code(s): N17.9 - Acute kidney failure, unspecified; N18.5 - Chronic kidney disease, stage 5 Is this a current diagnosis for this admission?: Yes Plan: The patient had dialysis earlier today. His serum creatinine is down to 7.4 (from 20). His hyperkalemia has resolved. He is tolerating dialysis and doing well. (2) Bladder hemorrhage Is this a current diagnosis for this admission?: Yes Plan: Continuing bladder irrigation. His hemoglobin has actually been stable and so it is likely that the bleeding has significantly decreased. (3) Anemia, chronic disease Is this a current diagnosis for this admission?: Yes Plan: Underlying anemia from chronic kidney disease exacerbated by hemorrhage from the bladder tumor (4) Hyperkalemia Is this a current diagnosis for this admission?: Yes Plan: Resolved with hemodialysis. Continue to monitor. (5) Leukemoid reaction Is this a current diagnosis for this admission?: Yes Plan: The white blood cell count is 48.1. It is much improved from admission however he has been staying in the 45-50 window for several days now. Continue to monitor. (6) Pneumothorax Qualifiers: Pneumothorax type: postprocedural Qualified Code(s): J95.811 - Postprocedural pneumothorax Is this a current diagnosis for this admission?: Yes Plan: We will check a chest x-ray tomorrow if the patient is not transferred. The pneumothorax should resolve on its own. (7) Bilateral hydronephrosis Is this a current diagnosis for this admission?: Yes Plan: Secondary to the bladder tumor. (8) Hypothermia Qualifiers: Encounter type: initial encounter Qualified Code(s): T68.XXXA - Hyp othermia, initial encounter Is this a current diagnosis for this admission?: Yes Plan: Resolved (9) Metabolic acidosis Is this a current diagnosis for this admission?: Yes Plan: From kidney disease. Resolved. - Plan Summary Summary: 04/28/2020 I do long discussion with Dr. Ley this morning. I also had a discussion with the patient this afternoon. Evidently the patient was seen by a urologist last year. He was not inclined to believe the urologists assessment. Evidently the urologist told him it was cancer without a biopsy. I explained to the patient that on imaging radiologist can often tell what is characteristically tumor. He states that until we have a biopsy he does not think it is cancer. He also believes that the mass in his groin is from getting in and out of his truck and something shifted and that is why he has pressure and swelling. He is hoping that it can be drained. Evidently Dr. Ley, at this point in his work-up, believes that the patient has stage IV bladder cancer. The patient was schedule d for biopsy this week. I will arrange for the biopsy to be performed here. I will have Dr. Castano see the patient. It is possible that the patient may require radiation therapy to shrink the tumor and possibly stop the bleeding. It may be palliative radiation as it is unclear what treatment options might be available. For the time being we will insert a 3-way catheter for bladder irrigation. We will obtain old records from Dr. Ley. If the patient's neuropathy is from obstruction and his serum creatinine was 11 in 2016 then he has likely had this cancer for many years. Clearly his body has adapted to his kidney failure since he presented with a serum creatinine of 20 and hemoglobin of 4.0 without being critically ill. Await further assessment before discussions begin about treatment versus palliative care. 04/30/2020 Unfortunately interventional radiology feels that it is too risky to perform a percutaneous biopsy on the tumor. Dr. Castano did reach out to Dr. Ley and we will attempt to transfer the patient to [facility] as Dr. Ley is transportation department head this weekend and could perform cystoscopy and biopsy as early as tomorrow. When I was explaining this to the patient he stated that he had to leave. He was frustrated being stuck in the hospital room. I explained to him that he would have to sign out AGAINST MEDICAL ADVICE. He would have to have the dialysis catheter removed from his neck. We would provide a leg bag for the Wade catheter but this would eliminate continuous bladder irrigation. I told him that this would be extremely unhealthy and that the only way for him to get into [facility] would be to go to the emergency department. This is inappropriate at best. He told me that his sister would drive him down to [place]. I in fact called his sister. She was quite upset. She stated that in no way would she support this and would not drive him. She was kind enough to call the patient and convince the patient to stay. I have called [facility] twice so far today. I will continue to call. I did text Dr. Ley to make him aware of our situation. I assured him that I would keep calling the [facility] transfer center in an attempt to get Mr. Walker the appropriate care. While I was on the phone with the patient's sister she did acknowledge that her brother is in denial. She acknowledged that he has been told several times that this is cancer. She made me aware that he is consistent about his idea of why he has swelling by his scrotum and penis. This is from getting in and out of a truck he feels. She in fact is told him that that is not the case. I will continue to call [facility] possibly tonight and then again first thing in the morning to transfer Mr. Rogelio finch to a center for appropriate care. He does not wish to go any place else as he is established with his urologist in [place]. - Time Time Spent with patient: 25-34 minutes Medications reviewed and adjusted accordingly: Yes Anticipated Discharge Disposition: Tertiary - [facility] Anticipated Discharge Timeframe: when bed available
--- NOTE | 2020-04-30 21:11 | PDOC PROGRESS REPORT ---
Subjective Progress Note for:: 04/30/20 Subjective:: I am seeing the patient during dialysis this morning. He does not have any complaints and he is tolerating dialysis very well. Dr. Castano has seen him this morning and the plan of action was explained to him including a bladder biopsy. Is currently fairly stable. He denies any shortness of breath or chest pain. He has a three-way Wade catheter inserted couple days ago and a continuous bladder irrigation can end of floor. So far the fluid in his Wade catheter bag is not as bloody anymore. Reason For Visit: METABOLIC ACIDOSIS,A ON CKI, HYPERKALEMIA,ANEMIA Physical Exam Vital Signs: Temp Pulse Resp BP Pulse Ox 98.3 F 124 H 18 103/70 100 04/30/20 00:39 04/30/20 02:00 04/30/20 00:39 04/30/20 00:39 04/30/20 00:39 Intake & Output 04/29/20 04/30/20 05/01/20 06:59 06:59 06:59 Intake Total 3390 Output Total 5800 6550 Balance -2410 -6550 Weight 67 kg 74.2 kg Vitals during dialysis: Blood pressure 100/69, heart rate of 126, blood flow rate of 250 mL/min and dialysate flow rate of 600 mL/min using a trialysis catheter. Exam: General appearance: PRESENT: no acute distress, cooperative, well-developed, well-nourished Head exam: PRESENT: atraumatic, normocephalic Eye exam: PRESENT: conjunctiva pale, PERRLA. ABSENT: scleral icterus Neck exam: ABSENT: JVD Respiratory exam: PRESENT: Normal breath sounds. ABSENT: crackles, rales, rhonchi, unlabored, wheezes Cardiovascular exam: PRESENT: Regular rate rhythm -+S1, +S2. ABSENT: diastolic murmur, systolic murmur GI/Abdominal exam: PRESENT: normal bowel sounds, soft. ABSENT: guarding, mass, tenderness Extremities exam: ABSENT: No edema Neurological exam: PRESENT: alert, awake, oriented to person, place and time. Skin exam: PRESENT: dry, warm, Results Laboratory Results: 04/30/20 05:40 04/30/20 05:40 04/30/20 04/30/20 05:40 05:40 WBC 47.5 H* RBC 3.38 L Hgb 9.8 L Hct 28.8 L MCV 85 MCH 28.9 MCHC 33.8 RDW 16.2 H Plt Count 328 Sodium 130.0 L Potassium 4.2 Chloride 95 L Carbon Dioxide 25 Anion Gap 10 BUN 58 H Creatinine 8.55 H Est GFR ( Amer) 8 L Glucose 105 Calcium 7.6 L Phosphorus 5.9 H Magnesium 2.0 04/26/20 04/26/20 04/26/20 19:20 19:20 20:03 Creatine Kinase Cancelled 100 CK-MB (CK-2) Cancelled Troponin I Cancelled 04/26/20 20:03 Creatine Kinase CK-MB (CK-2) 2.73 Troponin I 0.065 Impressions: Chest X-Ray 04/27/20 00:00 IMPRESSION: New right IJ central venous catheter with tip in the right atrium. No acute cardiopulmonary disease. No pneumothorax. Renal Ultrasound 04/27/20 00:00 IMPRESSION: 1. Bilateral hydronephrosis. 2. In the pelvis there is a large solid mass versus complex fluid collection in the bladder. Abdomen/Pelvis CT 04/29/20 08:00 IMPRESSION: No pneumothorax. No evidence of intrathoracic metastatic disease. Right internal jugular catheter terminates at the cavoatrial junction. Relative to 11/07/2019 imaging there has been marked growth of a bladder mass measuring on the order of 14.0 x 11.7 x 17.2 cm on today's examination. There appears to be extension versus metastasis into the penis. The Wade catheter balloon is positioned within the posterior penis. The above mass results in marked bilateral hydronephrosis and ureterectasis with delayed renal excretion of the intravenous contrast. Scattered retroperitoneal lymph nodes without bulky lymphadenopathy. Chest CT 04/29/20 08:00 IMPRESSION: No pneumothorax. No evidence of intrathoracic metastatic disease. Right internal jugular catheter terminates at the cavoatrial junction. Relative to 11/07/2019 imaging there has been marked growth of a bladder mass measuring on the order of 14.0 x 11.7 x 17.2 cm on today's examination. There appears to be extension versus metastasis into the penis. The Wade catheter balloon is positioned within the posterior penis. The above mass results in marked bilateral hydronephrosis and ureterectasis with delayed renal excretion of the intravenous contrast. Scattered retroperitoneal lymph nodes without bulky lymphadenopathy. Assessment & Plan - Diagnosis (1) Acute kidney injury superimposed on chronic kidney disease Is this a current diagnosis for this admission?: Yes Plan: Baseline kidney function is unknown but I think the patient has an advance dchronic kidney disease and possibly end-stage renal disease secondary to ongoing obstructive uropathy exacerbated by severe volume depletion on admission. Currently the patient is anuric. We are going to support him with hemodialysis as needed. However, I think overall prognosis needs to be reviewed once we know the status of his bladder mass and scrotal mass to make an appropriate determination if the patient is a good candidate for chronic dialysis treatment. I will not arrange for any outpatient chronic dialysis until we know prognosis and future overall plan with regards to the patient's possible bladder malignancy. We will do dialysis today for 2.5 hours, using the patient's dialysis catheter, with 3 potassium bath, blood flow rate of 250 mL per minute, dialysate flow rate of 600 mL per minute, ultrafiltration 0.5-1 L as tolerated, no heparin and Procrit with 5000 units during dialysis intravenously. Patient currently being monitored throughout dialysis treatment. Initial ultrafiltration was set 1 L but the patient became so tachycardic so we decrease it to 500 mL and due to persistent tachycardia we actually have to give the patient back about 500 mL of fluids. He completed treatment and tolerated it otherwise. (2) Uremia Is this a current diagnosis for this admission?: Yes Plan: Clinically improved. (3) Anemia Qualifiers: Anemia type: due to chronic kidney disease Chronic kidney disease stage: on chronic dialysis Qualified Code(s): N18.6 - End stage renal disease; D63.1 - Anemia in chronic kidney disease; Z99.2 - Dependence on renal dialysis Is this a current diagnosis for this admission?: Yes Plan: Due to a combination of blood loss from urethral bleeding and anemia of chronic kidney disease. (4) Obstructive uropathy Is this a current diagnosis for this admission?: Yes Plan: Patient has bilateral hydronephrosis in October 2019 for which no intervention was done and he was transferred at [facility]. His repeat kidney ultrasound done ,04/27 still showed the bilateral hydronephrosis and a large solid mass versus complex fluid collection in the bladder. Basically the patient has a bladder outlet obstruction due to the bladder mass. CT scan of the abdomen showed an interval increase in the size of the bladder mass with possible extension or metastasis to the penis. (5) Chronic kidney disease-mineral and bone disorder Is this a current diagnosis for this admission?: Yes Plan: Phosphorus is improved from 6.1 to 5.7 with PTH of 203.4. Patient is currently on Renvela. Started on calcitriol orally. (6) Bladder mass Is this a current diagnosis for this admission?: Yes Plan: High likelihood of malignancy unless proven otherwise causing bladder outlet obstruction. This is increasing growth seen in the current CT scan compared to that of October 2019. Discussed with oncologist, Dr. Castano this morning. I also discussed it with Dr. Dugan. Initial plan was to the interventional radiologist do a bladder biopsy but it was deemed to be too risky and they recommended that biopsy to be done via cystoscopy by urology which we do not have. Dr. Dugan was going to try to transfer the patient to [facility] were the patient's urologist, Dr. Ley is. (7) Scrotal masses Is this a current diagnosis for this admission?: Yes Plan: Right, likely due to malignancy. Seen in the CT scan as possible extension of the bladder mass to the penis. (8) Leukemoid reaction Is this a current diagnosis for this admission?: Yes Plan: WBC count improved without any antibiotics from admission but has been stabilizing at this point at around 40,000. (9) Bladder hemorrhage Is this a current diagnosis for this admission?: Yes Plan: On continuous bladder irrigation, appears to be improved. (10) Hypocalcemia Is this a current diagnosis for this admission?: Yes Plan: Much improved. (11) Hyperkalemia Is this a current diagnosis for this admission?: Yes Plan: Resolved with dialysis. (12) Metabolic acidosis Is this a current diagnosis for this admission?: Yes Plan: Resolved with dialysis. (13) Hypermagnesemia Is this a current diagnosis for this admission?: Yes Plan: Resolved. (14) Hypothermia Qualifiers: Encounter type: initial encounter Qualified Code(s): T68.XXXA - Hypothermia, initial encounter Is this a current diagnosis for this admission?: Yes Plan: Resolved. (15) History of nephrolithiasis Is this a current diagnosis for this admission?: Yes - Notes Notes: Discussed with Dr. Castano and Dr. Dugan as above. - Time Time with patient: 15-25 minutes
[2020-05-01] MEDS: PATIROMER 8.4 GM SUSP PACKET PO SCH (05:33)
[2020-05-01] MEDS: INSULIN LISPRO 100 UNIT/ML 3 ML VIAL SUBCUT SCH ×2 (08:11→12:02)
[2020-05-01] MEDS: CALCITRIOL 0.25 MCG CAPSULE PO SCH (09:06)
[2020-05-01] MEDS: SEVELAMER HCL 800 MG TABLET PO SCH ×2 (09:06→13:26)
--- NOTE | 2020-05-01 10:46 | PDOC PROGRESS REPORT ---
Subjective Progress Note for:: 05/01/20 Subjective:: Today I had a long conversation with the patient. Urine cytology did come back positive for atypical cells suspicious for urothelial carcinoma. We discussed this would mean what was suspected to be a likely stage IV bladder cancer with local extension and retroperitoneal adenopathy. However, he really wants to go home. He does not want any treatment, he understands that surgery is not likely an option, and understands that the only options would be chemo plus minus radiation plus continuous dialysis. But at present he does not want to go that route. I discussed hospice with him and comfort care measures, but he does not want to pursue this either. He just wants to go home and be at home. I told him he has a high likelihood of either dying quickly because of this decision or coming back into the hospital. He understands that, but still He is adamant about not having treatment and going home. I asked whether he should discuss this with his sister, he tells me he is told the sister this and after oversight she has told his sister this, and he feels his sister would like us want him to be hospitalized and treated, but he does not want that. I went over a domenic prognosis with him with life expectancy of less than 6 months. He understands this. Reason For Visit: METABOLIC ACIDOSIS,A ON CKI, HYPERKALEMIA,ANEMIA Physical Exam Vital Signs: Temp Pulse Resp BP Pulse Ox 98.9 F 103 H 16 103/61 99 05/01/20 07:41 05/01/20 07:41 05/01/20 07:41 05/01/20 07:41 05/01/20 07:41 Intake & Output 04/30/20 05/01/20 05/02/20 06:59 06:59 06:59 Intake Total 9895 Output Total 7416 3845 Balance -8412 -1644 Weight 74.2 kg 69.6 kg General appearance: PRESENT: no acute distress, well-developed, well-nourished Head exam: PRESENT: atraumatic, normocephalic Eye exam: PRESENT: conjunctiva pink, EOMI, PERRLA. ABSENT: scleral icterus Ear exam: PRESENT: normal external ear exam Mouth exam: PRESENT: moist, tongue midline Neck exam: ABSENT: carotid bruit, JVD, lymphadenopathy, thyromegaly Respiratory exam: PRESENT: clear to auscultation donald. ABSENT: rales, rhonchi, wheezes Cardiovascular exam: PRESENT: RRR. ABSENT: diastolic murmur, rubs, systolic murmur Pulses: PRESENT: normal dorsalis pedis pul Vascular exam: PRESENT: normal capillary refill GI/Abdominal exam: PRESENT: normal bowel sounds, soft. ABSENT: distended, guarding, mass, organolmegaly, rebound, tenderness Rectal exam: PRESENT: deferred Extremities exam: PRESENT: full ROM. ABSENT: calf tenderness, clubbing, pedal edema Neurological exam: PRESENT: alert, awake, oriented to person, oriented to place, oriented to time, oriented to situation, CN II-XII grossly intact. ABSENT: motor sensory deficit Psychiatric exam: PRESENT: appropriate affect, normal mood. ABSENT: homicidal ideation, suicidal ideation Skin exam: PRESENT: dry, intact, warm. ABSENT: cyanosis, rash Results Laboratory Results: 04/30/20 05:40 04/30/20 05:40 04/26/20 04/26/20 04/26/20 19:20 19:20 20:03 Creatine Kinase Cancelled 100 CK-MB (CK-2) Cancelled Troponin I Cancelled 04/26/20 20:03 Creatine Kinase CK-MB (CK-2) 2.73 Troponin I 0.065 Impressions: Chest X-Ray 04/27/20 00:00 IMPRESSION: New right IJ central venous catheter with tip in the right atrium. No acute cardiopulmonary disease. No pneumothorax. Renal Ultrasound 04/27/20 00:00 IMPRESSION: 1. Bilateral hydronephrosis. 2. In the pelvis there is a large solid mass versus complex fluid collection in the bladder. Abdomen/Pelvis CT 04/29/20 08:00 IMPRESSION: No pneumothorax. No evidence of intrathoracic metastatic disease. Right internal jugular catheter terminates at the cavoatrial junction. Relative to 11/07/2019 imaging there has been marked growth of a bladder mass measuring on the order of 14.0 x 11.7 x 17.2 cm on today's examination. There appears to be extension versus metastasis into the penis. The Wade catheter balloon is positioned within the posterior penis. The above mass results in marked bilateral hydronephrosis and ureterectasis with delayed renal excretion of the intravenous contrast. Scattered retroperitoneal lymph nodes without bulky lymphadenopathy. Chest CT 04/29/20 08:00 IMPRESSION: No pneumothorax. No evidence of intrathoracic metastatic disease. Right internal jugular catheter terminates at the cavoatrial junction. Relative to 11/07/2019 imaging there has been marked growth of a bladder mass measuring on the order of 14.0 x 11.7 x 17.2 cm on today's examination. There appears to be extension versus metastasis into the penis. The Wade catheter balloon is positioned within the posterior penis. The above mass results in marked bilateral hydronephrosis and ureterectasis with delayed renal excretion of the intravenous contrast. Scattered retroperitoneal lymph nodes without bulky lymphadenopathy. Assessment & Plan - Diagnosis (1) Bladder cancer metastasized to intra-abdominal lymph nodes Is this a current diagnosis for this admission?: Yes Plan: This now has confirmation of stage IV bladder cancer, atypical urothelial cells suspicious for bladder cancer were noted. I asked for more cytology to be sent today. However patient wants to go home and that is his decision and right. I discussed that only chemo and radiation is possible, and if we were to pursue this we would need continuous dialysis to be continued. I also discussed hospice as well as prognosis. At this point he does not want either treatment or hospice. He has our information to contact us for office visit we are happy to see him as an outpatient. As an outpatient, if he contacts us and agrees to it, we can also initiate hospice. I have discussed this case with Dr. Dugan as well. Today spent 45 minutes in discussion. - Time Time Spent with patient: 35 or more minutes Anticipated discharge: Home Anticipated DC Timeframe: within 24 hours
--- NOTE | 2020-05-01 11:18 | PDOC DISCHARGE SUMMARY ---
Impression - Admit/DC Date/PCP Admission Date/Primary Care Provider: 04/27/20 01:30 CASSANDRA SCHREIBER Discharge Date: 05/01/20 - Discharge Diagnosis (1) Acute on chronic renal failure Is this a current diagnosis for this admission?: Yes (2) Bladder hemorrhage Is this a current diagnosis for this admission?: Yes (3) Anemia, chronic disease Is this a current diagnosis for this admission?: Yes (4) Hyperkalemia Is this a current diagnosis for this admission?: Yes (5) Leukemoid reaction Is this a current diagnosis for this admission?: Yes (6) Pneumothorax Is this a current diagnosis for this admission?: Yes (7) Bilateral hydronephrosis Is this a current diagnosis for this admission?: Yes (8) Hypothermia Is this a current diagnosis for this admission?: Yes (9) Metabolic acidosis Is this a current diagnosis for this admission?: Yes - Assessment Summary: 04/28/2020 I do long discussion with Dr. Ley this morning. I also had a discussion with the patient this afternoon. Evidently the patient was seen by a urologist last year. He was not inclined to believe the urologists assessment. Evidently the urologist told him it was cancer without a biopsy. I explained to the patient that on imaging radiologist can often tell what is characteristically tumor. He states that until we have a biopsy he does not think it is cancer. He also believes that the mass in his groin is from getting in and out of his truck and something shifted and that is why he has pressure and swelling. He is hoping that it can be drained. Evidently Dr. Ley, at this point in his work-up, believes that the patient has stage IV bladder cancer. The patient was scheduled for biopsy this week. I will arrange for the biopsy to be performed here. I will have Dr. Castano see the patient. It is possible that the patient may require radiation therapy to shrink the tumor and possibly stop the bleeding. It may be palliative radiation as it is unclear what treatment options might be available. For the time being we will insert a 3-way catheter for bladder irrigation. We will obtain old records from Dr. Ley. If the patient's neuropathy is from obstruction and his serum creatinine was 11 in 2016 then he has likely had this cancer for many years. Clearly his body has adapted to his kidney failure since he presented with a serum creatinine of 20 and hemoglobin of 4.0 without being critically ill. Await further assessment before discussions begin about treatment versus palliative care. 04/30/2020 Unfortunately interventional radiology feels that it is too risky to perform a percutaneous biopsy on the tumor. Dr. Castano did reach out to Dr. Ley and we will attempt to transfer the patient to [facility] as Dr. Ley is site monitor this weekend and could perform cystoscopy and biopsy as early as tomorrow. When I was explaining this to the patient he stated that he had to leave. He was frustrated being stuck in the hospital room. I explained to him that he would have to sign out AGAINST MEDICAL ADVICE. He would have to have the dialysis catheter removed from his neck. We would provide a leg bag for the Wade catheter but this would eliminate continuous bladder irrigation. I told him that this would be extremely unhealthy and that the only way for him to get into [facility] would be to go to the emergency department. This is inappropriate at best. He told me that his sister would drive him down to [place]. I in fact called his sister. She was quite upset. She stated that in no way would she support this and would not drive him. She was kind enough to call the patient and convince the patient to stay. I have called [facility] twice so far today. I will continue to call. I did text Dr. Ley to make him aware of our situation. I assured him that I would keep calling the [facility] transfer center in an attempt to get Mr. Simmons the appropriate care. While I was on the phone with the patient's sister she did acknowledge that her brother is in denial. She acknowledged that he has been told several times that this is cancer. She made me aware that he is consistent about his idea of why he has swelling by his scrotum and penis. This is from getting in and out of a truck he feels. She in fact is told him that that is not the case. I will continue to call [facility] possibly tonight and then again first thing in the morning to transfer Mr. Simmons to a center for appropriate care. He does not wish to go any place else as he is established with his urologist in [place]. - Additional Information Resuscitation Status: Full Code Discharge Diet: Regular Discharge Activity: Balance Activity w/Rest Referrals: CAMP,ANTONIO M, PA [Primary Care Provider] - Follow up as needed Prescriptions: Sevelamer HCl [Renagel 800 mg Tablet] 800 mg PO MEALS #45 tablet Calcitriol [Rocaltrol 0.25 mcg Capsule] 0.25 mcg PO DAILY #14 capsule Patiromer Calcium Sorbitex [Veltassa 8.4 gm Susp Packet] 8.4 gm PO Q6AM #15 packet Home Medications: Calcitriol [Rocaltrol 0.25 mcg Capsule] 0.25 mcg PO DAILY #14 capsule 05/01/20 Patiromer Calcium Sorbitex [Veltassa 8.4 gm Susp Packet] 8.4 gm PO Q6AM #15 packet 05/01/20 Sevelamer HCl [Renagel 800 mg Tablet] 800 mg PO MEALS #45 tablet 05/01/20 History of Present Illiness History of Present Illness: FIDENCIO SIMMONS JR is a 64 year old male with prior hx advanced CKD who sees a ll his doctors in [facility], not on HD, cannot remember last time he made urine, came in to ER b/c weakness and diarrhea that had been progressing over a few days. No cough, fever, SOB, abdominal pain, N/V, dysuria. CXR & UA negative. Had profound leukocytosis. Hgb 4, no reports of bleeding. No home meds. K+ over 8, Cr over 20, HCO3- 8. Hospital Course Hospital Course: (1) Acute on chronic renal failure Qualifiers: Acute renal failure type: unspecified Chronic kidney disease stage: stage 5 , not on chronic dialysis Qualified Code(s): N17.9 - Acute kidney failure, unspecified; N18.5 - Chronic kidney disease, stage 5 Is this a current diagnosis for this admission?: Yes Plan: The patient was doing quite well with dialysis. Unfortunately he has decided that he does not want any further treatment. This is primarily driven by his metastatic cancer. His dialysis catheter will be removed and he will be discharged today. (2) Bladder hemorrhage Is this a current diagnosis for this admission?: Yes Plan: Marked bleeding was noted. Three-way Wade catheter was inserted for continuous bladder irrigation. It did seem that the bleeding was slowing. His hemoglobin, after 4 units of packed cells, was stable. We were attempting to transfer to [facility] where his urologist would perform cystoscopy and biopsy. Unfortunately the patient decided that he no longer wants to pursue treatment for any of his illnesses. (3) Anemia, chronic disease Is this a current diagnosis for this admission?: Yes Plan: Hemoglobin has been stable. (4) Hyperkalemia Is this a current diagnosis for this admission?: Yes Plan: Resolved with hemodialysis. (5) Leukemoid reaction Is this a current diagnosis for this admission?: Yes Plan: The white blood cell count is improved but is still markedly elevated. It seems to be stable staying in the 45-50 window for several days now. (6) Pneumothorax Qualifiers: Pneumothorax type: postprocedural Qualified Code(s): J95.811 - Postprocedural pneumothorax Is this a current diagnosis for this admission?: Yes Plan: Most likely occurred with dialysis line placement. The pneumothorax is apical and small and should resolve on its own. (7) Bilateral hydronephrosis Is this a current diagnosis for this admission?: Yes Plan: Secondary to the bladder tumor. Unfortunately will be unchanged unless the tumor is removed or he undergoes ureteral diversion. At this juncture he has decided not to pursue any other treatment. This is his choice. This is been discussed with him by me yesterday and today as well as Dr. Castano. Unfortunately his kidneys will fail but it is certainly his option to not want treatment. Considering the large tumor burden it is not unreasonable. (8) Hypothermia Qualifiers: Encounter type: initial encounter Qualified Code(s): T68.XXXA - Hypothermia, initial encounter Is this a current diagnosis for this admission?: Yes Plan: Resolved (9) Metabolic acidosis Is this a current diagnosis for this admission?: Yes Plan: From kidney disease. Resolved. The patient most likely has metastatic bladder cancer with an extremely large lesion on the bladder extending to the base the penis as well as retroperitoneal lymph nodes. Multiple discussions have been had. The patient was awaiting biopsy confirmation. He had alternative reasons as to why he had a mass. Unfortunately none of them were realistic. He had talked yesterday about leaving when they were not able to perform biopsy. I have been trying to get him transferred to [facility] where his urologist is. They have been full. Today in fact they did have a bed however the patient has decided not to pursue treatment. I did call his sister and she spoke to him and despite myself, Dr. Castano and his Sister Nubia speaking to him he is firm in his conviction to stop treatment. Dr. Castano did offer hospice but at this time he will hold on any outside intervention. When I spoke to his sister she is disappointed in his choice but understands that it is his choice. She has been through the process of hospice care with her parents and other relatives. If the patient decides to change his mind she has contact to call to establish hospice care. Physical Exam Vital Signs: Temp Pulse Resp BP Pulse Ox 98.9 F 103 H 16 103/61 99 05/01/20 07:41 05/01/20 07:41 05/01/20 07:41 05/01/20 07:41 05/01/20 07:41 Intake & Output 04/30/20 05/01/20 05/02/20 06:59 06:59 06:59 Intake Total 3235 Output Total 7022 7584 Balance -5770 -3274 Weight 74.2 kg 69.6 kg Respiratory exam: PRESENT: clear to auscultation donald. ABSENT: rales, rhonchi, wheezes Cardiovascular exam: PRESENT: RRR, +S1, +S2 GI/Abdominal exam: PRESENT: mass, soft. ABSENT: tenderness Neurological exam: PRESENT: alert, awake, oriented to person, oriented to place, oriented to time, oriented to situation, CN II-XII grossly intact. ABSENT: motor sensory deficit Results Laboratory Results: WBC 47.5 10^3/uL (4.0-10.5) H* 04/30/20 05:40 RBC 3.38 10^6/uL (4.35-5.55) L 04/30/20 05:40 Hgb 9.8 g/dL (13.5-17.0) L 04/30/20 05:40 Hct 28.8 % (37.9-51.0) L 04/30/20 05:40 MCV 85 fl (80-97) 04/30/20 05:40 MCH 28.9 pg (27.0-33.4) 04/30/20 05:40 MCHC 33.8 g/dL (32.0-36.0) 04/30/20 05:40 RDW 16.2 % (11.5-14.0) H 04/30/20 05:40 Plt Count 328 10^3/uL (150-450) 04/30/20 05:40 Lymph % (Auto) Not Reportable 04/26/20 20:03 Crawford % (Auto) Not Reportable 04/26/20 20:03 Eos % (Auto) Not Reportable 04/26/20 20:03 Baso % (Auto) Not Reportable 04/26/20 20:03 Absolute Neuts (auto) Not Reportable 04/26/20 20:03 Absolute Lymphs (auto) Not Reportable 04/26/20 20:03 Absolute Monos (auto) Not Reportable 04/26/20 20:03 Absolute Eos (auto) Not Reportable 04/26/20 20:03 Absolute Basos (auto) Not Reportable 04/26/20 20:03 Total Counted 100 04/26/20 20:03 Seg Neutrophils % Not Reportable 04/26/20 20:03 Seg Neuts % (Manual) 95 % (42-78) H 04/26/20 20:03 Lymphocytes % (Manual) 3 % (13-45) L 04/26/20 20:03 Monocytes % (Manual) 2 % (3-13) L 04/26/20 20:03 Eosinophils % (Manual) 0 % (0-6) 04/26/20 20:03 Basophils % (Manual) 0 % (0-2) 04/26/20 20:03 Abs Neuts (Manual) 71.8 10^3/uL (1.7-8.2) H 04/26/20 20:03 Abs Lymphs (Manual) 2.3 10^3/uL (0.5-4.7) 04/26/20 20:03 Abs Monocytes (Manual) 1.5 10^3/uL (0.1-1.4) H 04/26/20 20:03 Absolute Eos (Manual) 0.0 10^3/uL (0.0-0.6) 04/26/20 20:03 Abs Basophils (Manual) 0.0 10^3/uL (0.0-0.2) 04/26/20 20:03 Toxic Granulation 1+ 04/26/20 20:03 Platelet Estimate Cancelled 04/26/20 19:20 Platelet Comment INCREASED 04/26/20 20:03 Polychromasia SLIGHT 04/26/20 20:03 Hypochromasia 1+ 04/26/20 20:03 Poikilocytosis 1+ 04/26/20 20:03 Anisocytosis 1+ 04/26/20 20:03 Ovalocytes SLIGHT 04/26/20 20:03 Elle Cells 2+ 04/26/20 20:03 Acanthocytes (Spur) SLIGHT 04/26/20 20:03 Schistocytes SLIGHT 04/26/20 20:03 PT 15.7 SEC (11.4-15.4) H 04/29/20 06:45 INR 1.23 04/29/20 06:45 APTT 42.5 SEC (23.5-35.8) H 04/29/20 06:45 Fibrinogen 582 mg/dL (209-497) H 04/29/20 06:45 D-Dimer 7.00 ug/mL (0.00-0.50) H 04/29/20 06:45 Carbonic Acid 1.04 mmol/L (1.05-1.35) L 04/28/20 04:49 HCO3/H2CO3 Ratio 24:1 04/28/20 04:49 ABG pH 7.48 (7.35-7.45) H 04/28/20 04:49 ABG pCO2 34.6 mmHg (35-45) L 04/28/20 04:49 ABG pO2 92.7 mmHg (80-100) 04/28/20 04:49 ABG HCO3 25.2 mmol/L (20-24) H 04/28/20 04:49 ABG Total CO2 26.3 mmol/L (23-27) 04/28/20 04:49 ABG O2 Saturation 97.6 % (94-98) 04/28/20 04:49 ABG Base Excess 1.8 mmol/L 04/28/20 04:49 VBG pH 7.11 (7.30-7.42) L* 04/26/20 20:03 VBG pCO2 20.4 mmHg (35-63) L 04/26/20 20:03 VBG HCO3 6.4 mmol/L (20-32) L 04/26/20 20:03 VBG Base Excess -21.0 mmol/L 04/26/20 20:03 FiO2 ROOM AIR 04/28/20 04:49 Sodium 130.0 mmol/L (137-145) L 04/30/20 05:40 Potassium 4.2 mmol/L (3.6-5.0) 04/30/20 05:40 Chloride 95 mmol/L (98-107) L 04/30/20 05:40 Carbon Dioxide 25 mmol/L (22-30) 04/30/20 05:40 Anion Gap 10 (5-19) 04/30/20 05:40 BUN 58 mg/dL (7-20) H 04/30/20 05:40 Creatinine 8.55 mg/dL (0.52-1.25) H 04/30/20 05:40 Est GFR ( Amer) 8 (>60) L 04/30/20 05:40 Est GFR (Non-Af Amer) Cancelled 04/26/20 19:20 Est GFR (MDRD) Non-Af 6 (>60) L 04/30/20 05:40 Glucose 105 mg/dL (75-110) 04/30/20 05:40 POC Glucose 104 mg/dL (70-110) 05/01/20 07:42 Lactic Acid 2.6 mmol/L (0.7-2.1) H 04/27/20 02:07 Calcium 7.6 mg/dL (8.4-10.2) L 04/30/20 05:40 Phosphorus 5.9 mg/dL (2.5-4.5) H 04/30/20 05:40 Magnesium 2.0 mg/dL (1.6-2.3) 04/30/20 05:40 Total Bilirubin 0.4 mg/dL (0.2-1.3) 04/26/20 20:03 Direct Bilirubin 0.3 mg/dL (0.0-0.4) 04/26/20 20:03 Neonat Total Bilirubin Not Reportable 04/26/20 20:03 Neonat Direct Bilirubin Not Reportable 04/26/20 20:03 Neonat Indirect Bili Not Reportable 04/26/20 20:03 AST 23 U/L (17-59) 04/26/20 20:03 ALT < 40 U/L (<50) 04/26/20 20:03 Alkaline Phosphatase 107 U/L (38-126) 04/26/20 20:03 Creatine Kinase 100 U/L (55-170) 04/26/20 20:03 CK-MB (CK-2) 2.73 ng/mL (<4.55) 04/26/20 20:03 Troponin I 0.065 ng/mL 04/26/20 20:03 Total Protein 8.2 g/dL (6.3-8.2) 04/26/20 20:03 Albumin 2.4 g/dL (3.5-5.0) L 04/29/20 06:45 EGFR Cancelled 04/26/20 19:20 PTH Intact 203.4 pg/mL (10.0-65.0) H 04/27/20 18:50 Stool Occult Blood POSITIVE (NEGATIVE) 04/28/20 08:40 Hep Bs Antigen Negative (Negative) 04/27/20 10:59 Hep Bs Antibody, Quant 4.7 mIU/mL (Immunity>9) L 04/27/20 10:59 Hep B Core Total Ab Negative (Negative) 04/27/20 10:59 HCV Quantitation HCV Not Detected IU/mL (.) 04/27/20 10:59 HCV RNA PCR Test Info Comment (.) 04/27/20 10:59 Slides for Path Review PATHOLOGIST REVIEWED 04/26/20 20:03 Blood Type O POSITIVE 04/26/20 20:03 Blood Type Confirm O POSITIVE 04/26/20 20:03 Antibody Screen NEGATIVE 04/26/20 20:03 Crossmatch See Detail 04/26/20 20:03 04/26/20 04/26/20 19:20 20:03 CK-MB (CK-2) Cancelled 2.73 Troponin I Cancelled 0.065 Impressions: Chest X-Ray 04/26/20 19:03 IMPRESSION: No evidence of acute cardiopulmonary disease. Chest X-Ray 04/27/20 00:00 IMPRESSION: New right IJ central venous catheter with tip in the right atrium. No acute cardiopulmonary disease. No pneumothorax. Renal Ultrasound 04/27/20 00:00 IMPRESSION: 1. Bilateral hydronephrosis. 2. In the pelvis there is a large solid mass versus complex fluid collection in the bladder. Abdomen/Pelvis CT 04/29/20 08:00 IMPRESSION: No pneumothorax. No evidence of intrathoracic metastatic disease. Right internal jugular catheter terminates at the cavoatrial junction. Relative to 11/07/2019 imaging there has been marked growth of a bladder mass measuring on the order of 14.0 x 11.7 x 17.2 cm on today's examination. There appears to be extension versus metastasis into the penis. The Wade catheter balloon is positioned within the posterior penis. The above mass results in marked bilateral hydronephrosis and ureterectasis with delayed renal excretion of the intravenous contrast. Scattered retroperitoneal lymph nodes without bulky lymphadenopathy. Chest CT 04/29/20 08:00 IMPRESSION: No pneumothorax. No evidence of intrathoracic metastatic disease. Right internal jugular catheter terminates at the cavoatrial junction. Relative to 11/07/2019 imaging there has been marked growth of a bladder mass measuring on the order of 14.0 x 11.7 x 17.2 cm on today's examination. There appears to be extension versus metastasis into the penis. The Wade catheter balloon is positioned within the posterior penis. The above mass results in marked bilateral hydronephrosis and ureterectasis with delayed renal excretion of the intravenous contrast. Scattered retroperitoneal lymph nodes without bulky lymphadenopathy. Plan Health Concerns: Stage IV metastatic malignancy complicated by obstructive uropathy and kidney disease. As noted above the patient is opted to stop treatment modalities at this time. Plan of Treatment: I did send prescriptions for sevelamer, Veltassa and Rocaltrol to the [facility] pharmacy on [facility]. It is my belief, and the sister does confirm this, that he will not likely fill the prescriptions. Goals: Hopefully the patient will allow supportive hospice care as he gets sicker Time Spent: Greater than 30 Minutes Stroke Is this a Stroke Patient?: No Acute Heart Failure - Is this a Heart Failure Patient?: No
[2020-05-01 12:43] VITALS: BP 90/55
== END 2020-05-01 13:54 | disposition home or self-care (01) | DRG 686 ==
LOC: ER 19:01 → EH 04-27 01:30 → ICU 04-27 06:57 → 3S 04-28 16:18
PROVIDERS: ADMIT Family Medicine; ATTEND Hospitalist
PROC: 30233N1 Transfusion of Nonautologous Red Blood Cells into Peripheral Vein, Percutaneous Approach (ICD-10-PCS; 2020-04-26)
PROC: 02H633Z Insertion of Infusion Device into Right Atrium, Percutaneous Approach (ICD-10-PCS; principal; 2020-04-27)
PROC: 5A1D70Z Performance of Urinary Filtration, Intermittent, Less than 6 Hours Per Day (ICD-10-PCS; 2020-04-27)
DX: C67.9 Malignant neoplasm of bladder, unspecified (principal); N18.6 End stage renal disease; N17.9 Acute kidney failure, unspecified; E87.2 Acidosis; J95.811 Postprocedural pneumothorax; N13.30 Unspecified hydronephrosis; C77.2 Secondary and unspecified malignant neoplasm of intra-abdominal lymph nodes; Z99.2 Dependence on renal dialysis; N50.89 Other specified disorders of the male genital organs; D63.1 Anemia in chronic kidney disease; N32.89 Other specified disorders of bladder; E87.5 Hyperkalemia; D72.823 Leukemoid reaction; T68.XXXA Hypothermia, initial encounter; N13.9 Obstructive and reflux uropathy, unspecified; E83.41 Hypermagnesemia; E83.52 Hypercalcemia; F17.210 Nicotine dependence, cigarettes, uncomplicated; R31.0 Gross hematuria; Z60.2 Problems related to living alone; Z75.1 Person awaiting admission to adequate facility elsewhere; Z80.1 Family history of malignant neoplasm of trachea, bronchus and lung; Z80.3 Family history of malignant neoplasm of breast
CPT/HCPCS: 36415; 36430; 71045; 71260; 74177; 76770; 80048; 80053; 82040; 82272; 82550; 82553; 82803; 82962; 83605; 83735; 83970; 84100; 84484; 85025; 85027; 85379; 85384; 85610; 85730; 86317; 86704; 86850; 86900; 86901; 86920; 87040; 87340; 87522; 93005; 93010; 96361; 96365; 96375; 96376; 99291; 99292; J0610; J1644; J1815; J2543; J3490; J7030; J7040; J7050; J7060; P9016; Q5105